=== PATIENT | female | born 1950 | race Caucasian/White ===

== ENCOUNTER 2017-03-20 20:08 | Inpatient (IN) | payer MEDICARE ==
[~2017-03-20] VITALS: Ht 165.1 cm; Wt 96.0 kg
[2017-03-20] MEDS ORDERED: ONDANSETRON 2MG/ML, 2ML IVPush ONE (20:30)
[2017-03-20] MEDS ORDERED: SODIUM CHLORIDE 0.9% 1,000ML IVBOLUS ONE ×3 (20:30→22:00)
[2017-03-20] MEDS ORDERED: SODIUM CHLORIDE FLUSH 10ML SYR IVF ONE ×2 (20:30→22:00)
[2017-03-20] MEDS ORDERED: ONDANSETRON 2MG/ML, 2ML ONE (21:00)
[2017-03-20] MEDS ORDERED: METF500T4 PO (21:10)
[2017-03-20 21:12] LABS: HEMATOCRIT 47.2 % (34.6-47.8); HEMOGLOBIN 15.3 g/dL (11.7-16.4); WHITE BLOOD COUNT 22.1 x10^3/uL (3.4-10)
[2017-03-20 21:25] LABS: ASPARTATE AMINO TRANSFERASE 9 U/L (15-37); BLOOD UREA NITROGEN 34 mg/dL (7-18)
[2017-03-20 21:29] LABS: IS PT STATUS REG ER OR PRE ER? YES
[2017-03-20 21:30] LABS: DIFF TOTAL CELLS COUNTED 100 CELL DIFF
[2017-03-20 21:32] LABS: VERIFY COUNTS? YES
[2017-03-20 21:33] LABS: LARGE PLATELETS 1+
[2017-03-20] MEDS ORDERED: SODIUM CHLORIDE 0.9% 1,000 ML IV ONE (21:35)
[2017-03-20] MEDS ORDERED: PHARMACOKINETIC CONSULTATION MC ONE (22:00)
[2017-03-20] MEDS ORDERED: VANCOMYCIN 1,400 MG in SODIUM CHLORIDE 0.9% 250 ML IV ONE (22:00)
[2017-03-20] MEDS ORDERED: PIPERACILLIN/TAZO/PMX 4.5GM 100 ML IV ONE (22:00)
[2017-03-20] MEDS ORDERED: PIPERACILLIN/TAZO/PMX 3.375GM 50 ML IVPB ONE (22:00)
[2017-03-20] MEDS ORDERED: VANCOMYCIN PER PHARMACY IV ONE (22:00)
[2017-03-20] MEDS ORDERED: CLINDAMYCIN PMX 900MG/50ML 50 ML IV ONE (22:00)
[2017-03-20] MEDS ORDERED: OMNIPAQUE 350 MG/ML, 100ML BOTTLE ONE (22:24)
[2017-03-20] MEDS ORDERED: REGULAR INSULIN 62.5 UNITS in SODIUM CHLORIDE 0.9% 249.375 ML IV PRN ×2 (23:05→23:48)
[2017-03-20] MEDS ORDERED: CLINDAMYCIN PMX 900MG/50ML 50 ML ONE (23:07)
[2017-03-20] MEDS ORDERED: LACTATED RINGERS 1,000 ML IV SCH (23:30)
[2017-03-20] MEDS ORDERED: D5%-0.45% NACL 1,000 ML IV SCH (23:48)
[2017-03-20] MEDS ORDERED: FENTANYL PF 100 MCG/2ML ONE (23:58)
[2017-03-20] MEDS ORDERED: INSULIN SINGLE DOSE, ER SQ-INSULIN ONE (23:59)
[2017-03-21] MEDS ORDERED: hydrALAzine 20 MG/ML, 1ML IVPush PRN
[2017-03-21] MEDS ORDERED: ENALAPRILAT 1.25 MG/ML, 2ML IVPush PRN
[2017-03-21] MEDS ORDERED: ACETAMINOPHEN 325 MG TABLET PO PRN
[2017-03-21] MEDS ORDERED: POLYETHYLENE GLYCOL 17 GM PACKET PO PRN
[2017-03-21] MEDS ORDERED: VANCOMYCIN PER PHARMACY MC PRN
[2017-03-21] MEDS ORDERED: ONDANSETRON 2MG/ML, 2ML IVPush PRN
[2017-03-21] MEDS ORDERED: BISACODYL 10 MG SUPP PR PRN
[2017-03-21] MEDS ORDERED: PHENYLEPHRINE 10 MG/ML ONE (00:30)
[2017-03-21] MEDS ORDERED: KETAMINE 10 MG/ML, 20ML ONE (01:07)
[2017-03-21] MEDS ORDERED: SUCCINYLCHOLINE 20 MG/ML, 10ML ONE (01:26)
[2017-03-21] MEDS ORDERED: ROCURONIUM 10MG/ML,5ML ONE ×2 (01:26)
[2017-03-21] MEDS ORDERED: CALCIUM CHLORIDE 10%, 10ML SYR ONE ×3 (01:26→02:51)
[2017-03-21] MEDS ORDERED: PROPOFOL 10 MG/ML, 20ML ONE ×2 (01:26)
[2017-03-21 01:42] LABS: ASPARTATE AMINO TRANSFERASE 12 U/L (15-37); BLOOD UREA NITROGEN 31 mg/dL (7-18)
[2017-03-21] MEDS ORDERED: SODIUM BICARBONATE 4.2%, 5ML ONE (01:49)
[2017-03-21] MEDS ORDERED: PROPOFOL 100 ML IV ONE (02:22)
[2017-03-21] MEDS ORDERED: PHARMACOKINETIC MONITORING MC PRN (02:30)
[2017-03-21] MEDS ORDERED: SODIUM BICARBONATE 1 MEQ/ML, 50ML VIAL ONE ×2 (02:51)
[2017-03-21] MEDS ORDERED: POTASSIUM CHLORIDE 40 MEQ in SODIUM CHLORIDE 0.9% 500 ML IV ONE (03:00)
[2017-03-21] MEDS: NS + 40MEQ KCL 1,000 ML IV SCH ×3 (03:14→19:42)
[2017-03-21] MEDS ORDERED: FENTANYL PF 2,500 MCG in SODIUM CHLORIDE 0.9% 200 ML IV PRN (03:14)
[2017-03-21] MEDS ORDERED: PROPOFOL 100 ML IV PRN (03:14)
[2017-03-21] MEDS: FENTANYL PF 2,500 MCG in SODIUM CHLORIDE 0.9% 200 ML IV PRN ×2 (03:17→22:36)
[2017-03-21 03:20] LABS: BLOOD UREA NITROGEN 31 mg/dL (7-18)
[2017-03-21] MEDS ORDERED: GLUCAGON 1 MG IM PRN (03:30)
[2017-03-21] MEDS: ALBUTEROL/IPRATROPIUM 2.5MG/0.5MG, 3 ML INLINE SCH ×7 (03:30→22:56)
[2017-03-21] MEDS ORDERED: LIDOCAINE-MPF 1%, 2ML ENDO PRN (03:30)
[2017-03-21] MEDS ORDERED: DEXTROSE 4 GM TAB.CHEW PO PRN (03:30)
[2017-03-21] MEDS: PIPERACILLIN/TAZO/PMX 3.375GM 50 ML IV SCH ×4 (03:31→21:18)
[2017-03-21] MEDS ORDERED: NOREPINEPHRINE 1 MG/ML, 4ML ONE (03:59)
[2017-03-21 05:22] LABS: HEMATOCRIT 33.6 % (34.6-47.8); HEMOGLOBIN 11.4 g/dL (11.7-16.4); WHITE BLOOD COUNT 25.4 x10^3/uL (3.4-10)
[2017-03-21 05:40] LABS: ASPARTATE AMINO TRANSFERASE 7 U/L (15-37); BLOOD UREA NITROGEN 30 mg/dL (7-18)
[2017-03-21 05:59] LABS: DIFF TOTAL CELLS COUNTED 100 CELL DIFF
[2017-03-21 06:02] LABS: VERIFY COUNTS? YES
[2017-03-21] MEDS: PROPOFOL 100 ML IV PRN ×6 (06:26→22:07)
[2017-03-21] MEDS: INSULIN ASPART 100 UNITS/ML, PEN SQ-INSULIN SCH ×4 (07:34→21:17)
[2017-03-21] MEDS: SENNA/DOCUSATE TABLET PO SCH (07:35)
[2017-03-21] MEDS: NOREPINEPHRINE 4 MG in SODIUM CHLORIDE 0.9% 246 ML IV PRN (09:07)
[2017-03-21] MEDS: VANCOMYCIN 1,400 MG in SODIUM CHLORIDE 0.9% 250 ML IV SCH ×2 (10:34→22:07)
[2017-03-21] MEDS: INSULIN DETEMIR 100 UNITS/ML, PEN SQ-INSULIN SCH ×2 (11:32→21:18)
[2017-03-21 11:40] LABS: BLOOD UREA NITROGEN 34 mg/dL (7-18)
[2017-03-21] MEDS ORDERED: MIDAZOLAM 1 MG/ML, 2ML ONE (16:36)
[2017-03-21] MEDS ORDERED: PROPOFOL 50 ML ONE (17:02)
[2017-03-21] MEDS ORDERED: FENTANYL PF 100 MCG/2ML ONE (17:19)
[2017-03-21 22:45] VITALS: BP 142/60
[2017-03-21] MEDS ORDERED: LACTATED RINGERS 1,000 ML IV SCH (23:30)
[2017-03-22] MEDS: NOREPINEPHRINE 4 MG in SODIUM CHLORIDE 0.9% 246 ML IV PRN ×3 (00:37→19:24)
[2017-03-22] MEDS: PROPOFOL 100 ML IV PRN ×7 (03:00→23:36)
[2017-03-22] MEDS: PIPERACILLIN/TAZO/PMX 3.375GM 50 ML IV SCH ×4 (03:30→20:04)
[2017-03-22] MEDS: NS + 40MEQ KCL 1,000 ML IV SCH ×3 (03:30→19:57)
[2017-03-22] MEDS: INSULIN ASPART 100 UNITS/ML, PEN SQ-INSULIN SCH ×4 (03:30→20:05)
[2017-03-22] MEDS: ALBUTEROL/IPRATROPIUM 2.5MG/0.5MG, 3 ML INLINE SCH ×6 (03:30→21:40)
[2017-03-22 04:00] VITALS: BP 115/46
[2017-03-22 04:40] LABS: ABG COLLECTION SITE RIGHT RADIAL; COLLATERAL CIRCULATION TESTING NORMAL
[2017-03-22 04:47] LABS: HEMATOCRIT 31.1 % (34.6-47.8); HEMOGLOBIN 10.6 g/dL (11.7-16.4); WHITE BLOOD COUNT 19.3 x10^3/uL (3.4-10)
[2017-03-22 04:52] LABS: BLOOD UREA NITROGEN 35 mg/dL (7-18)
[2017-03-22 05:45] LABS: DIFF TOTAL CELLS COUNTED 100 CELL DIFF
[2017-03-22 05:47] LABS: VERIFY COUNTS? YES
[2017-03-22] MEDS: INSULIN DETEMIR 100 UNITS/ML, PEN SQ-INSULIN SCH ×2 (08:50→20:05)
[2017-03-22] MEDS: SENNA/DOCUSATE TABLET PO SCH (08:51)
[2017-03-22] MEDS ORDERED: SODIUM CHLORIDE 0.9% 1,000ML IVBOLUS ONE ×3 (11:30→18:30)
[2017-03-22] MEDS ORDERED: MIDAZOLAM 1 MG/ML, 2ML ONE (12:48)
[2017-03-22] MEDS ORDERED: NOREPINEPHRINE 1 MG/ML, 4ML ONE (15:08)
[2017-03-22] MEDS ORDERED: BISACODYL 10 MG SUPP PR PRN (20:00)
[2017-03-22] MEDS ORDERED: POLYETHYLENE GLYCOL 17 GM PACKET PO PRN (20:00)
[2017-03-22] MEDS ORDERED: ONDANSETRON 2MG/ML, 2ML IVPush PRN (20:00)
[2017-03-22] MEDS ORDERED: ACETAMINOPHEN 325 MG TABLET PO PRN (20:00)
[2017-03-22] MEDS: VANCOMYCIN 1,400 MG in SODIUM CHLORIDE 0.9% 250 ML IV SCH (21:22)
[2017-03-22] MEDS: FENTANYL PF 2,500 MCG in SODIUM CHLORIDE 0.9% 200 ML IV PRN (21:22)
[2017-03-22] MEDS ORDERED: SODIUM CHLORIDE 0.9% 1,000 ML IV ONE (22:30)
[2017-03-23] MEDS: ALBUTEROL/IPRATROPIUM 2.5MG/0.5MG, 3 ML INLINE SCH ×2 (02:18→06:34)
[2017-03-23] MEDS: PIPERACILLIN/TAZO/PMX 3.375GM 50 ML IV SCH ×4 (02:38→21:18)
[2017-03-23] MEDS: NOREPINEPHRINE 4 MG in SODIUM CHLORIDE 0.9% 246 ML IV PRN (02:39)
[2017-03-23] MEDS: INSULIN ASPART 100 UNITS/ML, PEN SQ-INSULIN SCH ×4 (02:44→21:00)
[2017-03-23] MEDS: NS + 40MEQ KCL 1,000 ML IV SCH ×3 (02:57→21:59)
[2017-03-23] MEDS: PROPOFOL 100 ML IV PRN ×2 (02:57→08:21)
[2017-03-23 04:21] LABS: ABG COLLECTION SITE NOT DOCUMENTED
[2017-03-23 04:42] LABS: HEMATOCRIT 28.1 % (34.6-47.8); HEMOGLOBIN 9.5 g/dL (11.7-16.4); WHITE BLOOD COUNT 14.9 x10^3/uL (3.4-10)
[2017-03-23 04:45] VITALS: BP 122/59
[2017-03-23 04:45] LABS: BLOOD UREA NITROGEN 31 mg/dL (7-18)
[2017-03-23] MEDS: SENNA/DOCUSATE TABLET PO SCH (08:37)
[2017-03-23] MEDS: INSULIN DETEMIR 100 UNITS/ML, PEN SQ-INSULIN SCH ×2 (08:40→21:19)
[2017-03-23] MEDS ORDERED: ALBUMIN HUMAN 25% 100 ML IV ONE (10:00)
[2017-03-23] MEDS ORDERED: DAKIN'S SOLUTION 1/4 STRENGTH 1,000 ML IRRIG SOLN EXT SCH ×2 (11:00→21:00)
[2017-03-23] MEDS ORDERED: FUROSEMIDE 20 MG/2 ML IV ONE (11:15)
[2017-03-23] MEDS: VANCOMYCIN 1,400 MG in SODIUM CHLORIDE 0.9% 250 ML IV SCH (22:51)
[2017-03-24] MEDS: PIPERACILLIN/TAZO/PMX 3.375GM 50 ML IV SCH ×4 (03:31→22:22)
[2017-03-24] MEDS: INSULIN ASPART 100 UNITS/ML, PEN SQ-INSULIN SCH ×4 (03:31→20:15)
[2017-03-24 03:47] LABS: HEMATOCRIT 29.9 % (34.6-47.8); WHITE BLOOD COUNT 17.6 x10^3/uL (3.4-10)
[2017-03-24 03:59] LABS: BLOOD UREA NITROGEN 31 mg/dL (7-18)
[2017-03-24 04:00] VITALS: BP 163/80
[2017-03-24 04:37] LABS: ABG COLLECTION SITE RIGHT BRACHIAL
[2017-03-24] MEDS: FENTANYL PF 2,500 MCG in SODIUM CHLORIDE 0.9% 200 ML IV PRN (05:26)
[2017-03-24] MEDS ORDERED: SODIUM CHLORIDE 0.9% 1,000 ML IV SCH ×2 (09:00→16:30)
[2017-03-24] MEDS: SENNA/DOCUSATE TABLET PO SCH (09:00)
[2017-03-24] MEDS ORDERED: MAGNESIUM SULFATE PMX 2GM/50ML 50 ML IV ONE (09:00)
[2017-03-24] MEDS: INSULIN DETEMIR 100 UNITS/ML, PEN SQ-INSULIN SCH ×2 (09:00→20:15)
[2017-03-24 15:22] LABS: ABG COLLECTION SITE RIGHT RADIAL
[2017-03-24 15:25] LABS: COLLATERAL CIRCULATION TESTING NORMAL
[2017-03-24] MEDS ORDERED: TPN PER PHARMACY MC SCH (15:30)
[2017-03-24] MEDS ORDERED: FAT EMULSIONS IV SCH (17:00)
[2017-03-24] MEDS ORDERED: DEXTROSE 10% 500 ML IV PRN (17:00)
[2017-03-24] MEDS ORDERED: DEXTROSE 50%, 50ML SYRINGE IVPush PRN (17:00)
[2017-03-24] MEDS ORDERED: DEXTROSE 70% IV SCH (17:00)
[2017-03-24] MEDS ORDERED: [UNRECOGNIZED DRUG - OTHER] IV SCH (17:00)
[2017-03-24] MEDS ORDERED: AMINO ACID 10% IV SCH (17:00)
[2017-03-24] MEDS ORDERED: FILTER, DISP 1.2 MICRON FOR TPN/PVN IV PRN (17:00)
[2017-03-24] MEDS: DAKIN'S SOLUTION 1/4 STRENGTH 1,000 ML IRRIG SOLN EXT SCH (20:11)
[2017-03-24] MEDS: CLINDAMYCIN PMX 900MG/50ML 50 ML IV SCH (20:21)
[2017-03-24] MEDS: VANCOMYCIN 1,400 MG in SODIUM CHLORIDE 0.9% 250 ML IV SCH (23:30)
[2017-03-25] MEDS: CLINDAMYCIN PMX 900MG/50ML 50 ML IV SCH (02:52)
[2017-03-25] MEDS: INSULIN ASPART 100 UNITS/ML, PEN SQ-INSULIN SCH ×4 (02:57→20:15)
[2017-03-25] MEDS ORDERED: SODIUM CHLORIDE 0.9%, 500ML IVBOLUS ONE (03:00)
[2017-03-25] MEDS: PIPERACILLIN/TAZO/PMX 3.375GM 50 ML IV SCH ×2 (03:55→10:01)
[2017-03-25 03:57] VITALS: BP 142/72
[2017-03-25 04:21] LABS: HEMOGLOBIN 10.2 g/dL (11.7-16.4); WHITE BLOOD COUNT 19.5 x10^3/uL (3.4-10)
[2017-03-25 04:34] LABS: BLOOD UREA NITROGEN 42 mg/dL (7-18)
[2017-03-25 05:00] LABS: ASPARTATE AMINO TRANSFERASE 16 U/L (15-37)
[2017-03-25 05:13] LABS: ABG COLLECTION SITE RIGHT RADIAL; COLLATERAL CIRCULATION TESTING NORMAL
[2017-03-25 05:28] LABS: DIFF TOTAL CELLS COUNTED 100 CELL DIFF
[2017-03-25 05:32] LABS: VERIFY COUNTS? YES
[2017-03-25] MEDS: FENTANYL PF 2,500 MCG in SODIUM CHLORIDE 0.9% 200 ML IV PRN ×2 (05:44→10:07)
[2017-03-25] MEDS: SENNA/DOCUSATE TABLET PO SCH (09:00)
[2017-03-25] MEDS ORDERED: SODIUM BICARB 8.4%, 50ML SYRINGE IVPush ONE (09:30)
[2017-03-25] MEDS: DAKIN'S SOLUTION 1/4 STRENGTH 1,000 ML IRRIG SOLN EXT SCH ×2 (10:08→23:34)
[2017-03-25] MEDS: INSULIN DETEMIR 100 UNITS/ML, PEN SQ-INSULIN SCH ×3 (10:11→20:16)
[2017-03-25] MEDS: AMPICILLIN/SULBACTAM 1,500 MG in SODIUM CHLORIDE 0.9% 50 ML IV SCH ×2 (13:08→18:41)
[2017-03-25] MEDS ORDERED: FAT EMULSIONS IV SCH (17:00)
[2017-03-25] MEDS ORDERED: AMINO ACID 10% IV SCH (17:00)
[2017-03-25] MEDS ORDERED: [UNRECOGNIZED DRUG - OTHER] IV SCH (17:00)
[2017-03-25] MEDS ORDERED: DEXTROSE 70% IV SCH (17:00)
[2017-03-25] MEDS: FILTER, DISP 1.2 MICRON FOR TPN/PVN IV PRN (20:09)
[2017-03-26] MEDS: AMPICILLIN/SULBACTAM 1,500 MG in SODIUM CHLORIDE 0.9% 50 ML IV SCH ×3 (02:33→18:59)
[2017-03-26] MEDS: INSULIN ASPART 100 UNITS/ML, PEN SQ-INSULIN SCH ×4 (03:44→20:34)
[2017-03-26 03:52] VITALS: BP 170/76
[2017-03-26 05:33] LABS: HEMATOCRIT 29.3 % (34.6-47.8); HEMOGLOBIN 9.9 g/dL (11.7-16.4); WHITE BLOOD COUNT 15.2 x10^3/uL (3.4-10)
[2017-03-26 05:38] LABS: ABG COLLECTION SITE RIGHT BRACHIAL
[2017-03-26] MEDS: hydrALAzine 20 MG/ML, 1ML IVPush PRN ×3 (05:45→20:59)
[2017-03-26 05:50] LABS: BLOOD UREA NITROGEN 37 mg/dL (7-18)
[2017-03-26 05:53] LABS: ASPARTATE AMINO TRANSFERASE 8 U/L (15-37)
[2017-03-26 05:59] LABS: DIFF TOTAL CELLS COUNTED 100 CELL DIFF
[2017-03-26 06:06] LABS: VERIFY COUNTS? YES
[2017-03-26] MEDS: INSULIN DETEMIR 100 UNITS/ML, PEN SQ-INSULIN SCH ×2 (06:37→20:33)
[2017-03-26] MEDS: SENNA/DOCUSATE TABLET PO SCH (09:00)
[2017-03-26] MEDS: DAKIN'S SOLUTION 1/4 STRENGTH 1,000 ML IRRIG SOLN EXT SCH ×2 (10:30→20:28)
[2017-03-26] MEDS ORDERED: [UNRECOGNIZED DRUG - OTHER] IV SCH (17:00)
[2017-03-26] MEDS ORDERED: DEXTROSE 70% IV SCH ×2 (17:00)
[2017-03-26] MEDS ORDERED: AMINO ACID 10% IV SCH ×2 (17:00)
[2017-03-26] MEDS ORDERED: [UNRECOGNIZED DRUG - OTHER] IV SCH (17:00)
[2017-03-26] MEDS ORDERED: FAT EMULSIONS IV SCH ×2 (17:00)
[2017-03-26] MEDS ORDERED: LORazepam 2 MG/ML, 1ML IVPush ONE (20:00)
[2017-03-26] MEDS ORDERED: LORazepam 2 MG/ML, 1ML IVPush PRN (20:00)
[2017-03-26] MEDS: DIPHENHYDRAMINE 50 MG/ML, 1ML IVPush PRN (20:27)
[2017-03-27] MEDS: FENTANYL PF 2,500 MCG in SODIUM CHLORIDE 0.9% 200 ML IV PRN (01:49)
[2017-03-27] MEDS: AMPICILLIN/SULBACTAM 1,500 MG in SODIUM CHLORIDE 0.9% 50 ML IV SCH ×3 (02:39→19:36)
[2017-03-27] MEDS: INSULIN ASPART 100 UNITS/ML, PEN SQ-INSULIN SCH ×4 (02:49→21:57)
[2017-03-27 03:45] VITALS: BP 152/73
[2017-03-27 04:55] LABS: ABG COLLECTION SITE RIGHT RADIAL; COLLATERAL CIRCULATION TESTING NORMAL
[2017-03-27 05:32] LABS: HEMATOCRIT 27.6 % (34.6-47.8); HEMOGLOBIN 9.4 g/dL (11.7-16.4); WHITE BLOOD COUNT 14.1 x10^3/uL (3.4-10)
[2017-03-27 05:44] LABS: BLOOD UREA NITROGEN 26 mg/dL (7-18)
[2017-03-27] MEDS: INSULIN DETEMIR 100 UNITS/ML, PEN SQ-INSULIN SCH ×2 (05:53→19:37)
[2017-03-27] MEDS: SENNA/DOCUSATE TABLET PO SCH (07:43)
[2017-03-27] MEDS: DAKIN'S SOLUTION 1/4 STRENGTH 1,000 ML IRRIG SOLN EXT SCH ×2 (09:51→21:51)
[2017-03-27] MEDS: hydrALAzine 20 MG/ML, 1ML IVPush PRN ×2 (09:59→16:49)
[2017-03-27] MEDS: DIPHENHYDRAMINE 50 MG/ML, 1ML IVPush PRN ×3 (09:59→22:06)
[2017-03-27] MEDS: ZIPRASIDONE 20 MG INJ IM PRN ×2 (09:59→15:29)
[2017-03-27] MEDS ORDERED: [UNRECOGNIZED DRUG - OTHER] IV SCH (17:00)
[2017-03-27] MEDS ORDERED: AMINO ACID 10% IV SCH (17:00)
[2017-03-27] MEDS ORDERED: DEXTROSE 70% IV SCH (17:00)
[2017-03-27] MEDS ORDERED: FAT EMULSIONS IV SCH (17:00)
[2017-03-27] MEDS: morphine SULFATE 10 MG/ML, 1ML IVPush PRN (22:06)
[2017-03-28] MEDS: FENTANYL PF 2,500 MCG in SODIUM CHLORIDE 0.9% 200 ML IV PRN (00:36)
[2017-03-28] MEDS: morphine SULFATE 10 MG/ML, 1ML IVPush PRN ×2 (01:16→04:21)
[2017-03-28] MEDS: AMPICILLIN/SULBACTAM 1,500 MG in SODIUM CHLORIDE 0.9% 50 ML IV SCH ×3 (03:04→20:12)
[2017-03-28] MEDS: hydrALAzine 20 MG/ML, 1ML IVPush PRN (03:17)
[2017-03-28] MEDS: INSULIN ASPART 100 UNITS/ML, PEN SQ-INSULIN SCH ×5 (03:28→20:23)
[2017-03-28 04:25] LABS: ABG COLLECTION SITE RIGHT RADIAL; COLLATERAL CIRCULATION TESTING NORMAL
[2017-03-28 04:27] LABS: FIO2 ROOM AIR %
[2017-03-28 04:29] LABS: HEMATOCRIT 30.6 % (34.6-47.8); HEMOGLOBIN 10.2 g/dL (11.7-16.4); WHITE BLOOD COUNT 14.6 x10^3/uL (3.4-10)
[2017-03-28 04:36] LABS: BLOOD UREA NITROGEN 18 mg/dL (7-18)
[2017-03-28] MEDS ORDERED: LORazepam 2 MG/ML, 1ML ONE (05:13)
[2017-03-28 05:20] VITALS: BP 179/73
[2017-03-28] MEDS ORDERED: LORazepam 2 MG/ML, 1ML IVPush PRN (05:30)
[2017-03-28] MEDS: INSULIN DETEMIR 100 UNITS/ML, PEN SQ-INSULIN SCH ×2 (07:00→20:23)
[2017-03-28] MEDS ORDERED: MAGNESIUM SULFATE PMX 4GM/100M 100 ML IV ONE (07:30)
[2017-03-28] MEDS: DAKIN'S SOLUTION 1/4 STRENGTH 1,000 ML IRRIG SOLN EXT SCH ×2 (07:58→22:10)
[2017-03-28] MEDS: SENNA/DOCUSATE TABLET PO SCH (07:58)
[2017-03-28] MEDS: ZIPRASIDONE 20 MG INJ IM PRN (11:12)
[2017-03-28] MEDS: DIPHENHYDRAMINE 50 MG/ML, 1ML IVPush PRN (11:15)
[2017-03-28] MEDS ORDERED: EPINEPHRINE 1 MG/ML, 1ML ONE (14:00)
[2017-03-28] MEDS ORDERED: BUPIVACAINE/PF 0.5% ONE (14:00)
[2017-03-28] MEDS ORDERED: FENTANYL PF 250 MCG/5ML ONE (14:11)
[2017-03-28] MEDS ORDERED: MIDAZOLAM 1 MG/ML, 2ML ONE (14:11)
[2017-03-28] MEDS ORDERED: PROPOFOL 10 MG/ML, 20ML ONE (14:14)
[2017-03-28] MEDS ORDERED: SUCCINYLCHOLINE 20 MG/ML, 10ML ONE (14:14)
[2017-03-28] MEDS ORDERED: ONDANSETRON 2MG/ML, 2ML ONE (14:14)
[2017-03-28] MEDS ORDERED: CEFAZOLIN 1,000 MG ONE (14:14)
[2017-03-28] MEDS ORDERED: ROCURONIUM 10MG/ML,5ML ONE (14:14)
[2017-03-28] MEDS ORDERED: GLYCOPYRROLATE 0.2MG/1ML, 5ML ONE (14:14)
[2017-03-28] MEDS ORDERED: DEXAMETHASONE 4 MG/ML, 1ML ONE (14:14)
[2017-03-28] MEDS ORDERED: NEOSTIGMINE 1 MG/ML, 10ML ONE (14:14)
[2017-03-28] MEDS ORDERED: MORPHINE SULFATE 4 MG/ML, 1ML ONE (15:15)
[2017-03-28] MEDS ORDERED: VASOPRESSIN 20 UNIT/ML, 1ML ONE (15:24)
[2017-03-28] MEDS ORDERED: PHENYLEPHRINE 10 MG/ML ONE (15:24)
[2017-03-28] MEDS ORDERED: EPHEDRINE 50 MG/ML, 1ML ONE (16:05)
[2017-03-28] MEDS ORDERED: DIAZEPAM 5 MG/ML, 2ML IVPush PRN (17:00)
[2017-03-28] MEDS ORDERED: AMINO ACID 10% IV SCH (17:00)
[2017-03-28] MEDS ORDERED: MEPERIDINE/PF 25MG/0.5ML IVPush PRN (17:00)
[2017-03-28] MEDS ORDERED: HYDROmorphone 1 MG/ML, 1ML IV PRN (17:00)
[2017-03-28] MEDS ORDERED: MIDAZOLAM 1 MG/ML, 2ML IV PRN (17:00)
[2017-03-28] MEDS ORDERED: PROMETHAZINE 25 MG/ML, 1ML IV PRN (17:00)
[2017-03-28] MEDS ORDERED: ALBUTEROL SULFATE 2.5 MG/3 ML NPPB PRN (17:00)
[2017-03-28] MEDS ORDERED: [UNRECOGNIZED DRUG - OTHER] IV SCH (17:00)
[2017-03-28] MEDS ORDERED: METOPROLOL 1 MG/ML, 5ML IV PRN (17:00)
[2017-03-28] MEDS ORDERED: ACETAMINOPHEN 325 MG TABLET PO PRN (17:00)
[2017-03-28] MEDS ORDERED: HYDROcodone/APAP 7.5-325MG/15ML UDC PO PRN (17:00)
[2017-03-28] MEDS ORDERED: OXYcodone 5 MG/5 ML ORAL.SOL UDC PO PRN (17:00)
[2017-03-28] MEDS ORDERED: FENTANYL PF 100 MCG/2ML IV PRN (17:00)
[2017-03-28] MEDS ORDERED: FAT EMULSIONS IV SCH (17:00)
[2017-03-28] MEDS ORDERED: DEXTROSE 70% IV SCH (17:00)
[2017-03-28] MEDS ORDERED: hydrALAzine 20 MG/ML, 1ML IV PRN (17:00)
[2017-03-28] MEDS ORDERED: LABETALOL 5MG/ML, 20ML IV PRN (17:00)
[2017-03-28] MEDS ORDERED: ONDANSETRON 2MG/ML, 2ML IVPush PRN (17:00)
[2017-03-28] MEDS ORDERED: EPHEDRINE 50 MG/ML, 1ML IVPush PRN (17:00)
[2017-03-28] MEDS ORDERED: INSULIN REGULAR 100 UNITS/ML, 3ML VIAL SQ-INSULIN ONE (19:00)
[2017-03-29] MEDS: FENTANYL PF 2,500 MCG in SODIUM CHLORIDE 0.9% 200 ML IV PRN ×2 (00:40→20:15)
[2017-03-29] MEDS: INSULIN ASPART 100 UNITS/ML, PEN SQ-INSULIN SCH ×4 (02:04→19:40)
[2017-03-29] MEDS: AMPICILLIN/SULBACTAM 1,500 MG in SODIUM CHLORIDE 0.9% 50 ML IV SCH (03:23)
[2017-03-29 04:00] VITALS: BP 124/75
[2017-03-29 05:28] LABS: HEMATOCRIT 28.7 % (34.6-47.8); HEMOGLOBIN 9.6 g/dL (11.7-16.4)
[2017-03-29 05:31] LABS: BLOOD UREA NITROGEN 27 mg/dL (7-18)
[2017-03-29] MEDS: INSULIN DETEMIR 100 UNITS/ML, PEN SQ-INSULIN SCH ×2 (07:39→19:40)
[2017-03-29] MEDS: SENNA/DOCUSATE TABLET PO SCH (09:00)
[2017-03-29] MEDS: PIPERACILLIN/TAZO/PMX 4.5GM 100 ML IV SCH ×2 (10:38→18:00)
[2017-03-29] MEDS: DAKIN'S SOLUTION 1/4 STRENGTH 1,000 ML IRRIG SOLN EXT SCH ×2 (12:46→21:43)
[2017-03-29] MEDS ORDERED: [UNRECOGNIZED DRUG - OTHER] IV SCH (17:00)
[2017-03-29] MEDS ORDERED: FAT EMULSIONS IV SCH (17:00)
[2017-03-29] MEDS ORDERED: AMINO ACID 10% IV SCH (17:00)
[2017-03-29] MEDS ORDERED: DEXTROSE 70% IV SCH (17:00)
[2017-03-29] MEDS: FILTER, DISP 1.2 MICRON FOR TPN/PVN IV PRN (18:05)
[2017-03-29] MEDS ORDERED: GLUCAGON 1 MG IM PRN (19:30)
[2017-03-29] MEDS ORDERED: ACETAMINOPHEN 325 MG TABLET PO PRN (19:30)
[2017-03-29] MEDS ORDERED: DEXTROSE 50%, 50ML SYRINGE IVPush PRN (19:30)
[2017-03-29] MEDS ORDERED: POLYETHYLENE GLYCOL 17 GM PACKET PO PRN (19:30)
[2017-03-29] MEDS ORDERED: BISACODYL 10 MG SUPP PR PRN (19:30)
[2017-03-29] MEDS ORDERED: TPN PER PHARMACY MC SCH (19:30)
[2017-03-29] MEDS ORDERED: ONDANSETRON 2MG/ML, 2ML IVPush PRN (19:30)
[2017-03-29] MEDS ORDERED: DEXTROSE 10% 500 ML IV PRN (19:30)
[2017-03-30] MEDS: PIPERACILLIN/TAZO/PMX 4.5GM 100 ML IV SCH ×3 (01:48→17:36)
[2017-03-30] MEDS: INSULIN ASPART 100 UNITS/ML, PEN SQ-INSULIN SCH ×4 (02:02→22:00)
[2017-03-30 04:00] VITALS: BP 144/64
[2017-03-30 06:00] LABS: HEMATOCRIT 26.8 % (34.6-47.8); HEMOGLOBIN 9.1 g/dL (11.7-16.4); WHITE BLOOD COUNT 17.1 x10^3/uL (3.4-10)
[2017-03-30 06:05] VITALS: BP 143/62
[2017-03-30 06:07] LABS: BLOOD UREA NITROGEN 24 mg/dL (7-18)
[2017-03-30] MEDS: INSULIN DETEMIR 100 UNITS/ML, PEN SQ-INSULIN SCH (08:49)
[2017-03-30] MEDS: HEPARIN 5,000 UNITS/ML, 1ML SQ SCH ×2 (09:06→17:37)
[2017-03-30] MEDS: DAKIN'S SOLUTION 1/4 STRENGTH 1,000 ML IRRIG SOLN EXT SCH (09:06)
[2017-03-30] MEDS: SENNA/DOCUSATE TABLET PO SCH (09:06)
[2017-03-30] MEDS ORDERED: AMINO ACID 10% IV SCH (17:00)
[2017-03-30] MEDS ORDERED: FAT EMULSIONS IV SCH (17:00)
[2017-03-30] MEDS ORDERED: [UNRECOGNIZED DRUG - OTHER] IV SCH (17:00)
[2017-03-30] MEDS ORDERED: DEXTROSE 70% IV SCH (17:00)
[2017-03-31] MEDS: PIPERACILLIN/TAZO/PMX 4.5GM 100 ML IV SCH ×3 (01:53→18:29)
[2017-03-31] MEDS: HEPARIN 5,000 UNITS/ML, 1ML SQ SCH ×3 (01:54→18:29)
[2017-03-31 04:00] VITALS: BP 135/58
[2017-03-31 04:32] LABS: HEMATOCRIT 26.5 % (34.6-47.8); HEMOGLOBIN 8.9 g/dL (11.7-16.4); WHITE BLOOD COUNT 15.1 x10^3/uL (3.4-10)
[2017-03-31 04:36] LABS: BLOOD UREA NITROGEN 23 mg/dL (7-18)
[2017-03-31] MEDS: FENTANYL PF 2,500 MCG in SODIUM CHLORIDE 0.9% 200 ML IV PRN (04:48)
[2017-03-31] MEDS: INSULIN ASPART 100 UNITS/ML, PEN SQ-INSULIN SCH ×3 (06:00→23:07)
[2017-03-31] MEDS ORDERED: D5%-0.45NACL+KCL 20MEQ 1,000 ML IV SCH (07:30)
[2017-03-31] MEDS ORDERED: OXYcodone 5 MG/5 ML ORAL.SOL UDC NG PRN (08:30)
[2017-03-31] MEDS: SENNA/DOCUSATE TABLET PO SCH (09:00)
[2017-03-31 15:00] VITALS: BP 157/95
[2017-03-31] MEDS: OXYcodone IR 5MG TABLET PO PRN ×2 (16:35→23:19)
[2017-03-31] MEDS ORDERED: DEXTROSE 70% IV SCH (17:00)
[2017-03-31] MEDS ORDERED: FAT EMULSIONS IV SCH (17:00)
[2017-03-31] MEDS ORDERED: AMINO ACID 10% IV SCH (17:00)
[2017-03-31] MEDS ORDERED: [UNRECOGNIZED DRUG - OTHER] IV SCH (17:00)
[2017-03-31] MEDS: FILTER, DISP 1.2 MICRON FOR TPN/PVN IV PRN (17:15)
[2017-04-01 01:45] VITALS: BP 138/62
[2017-04-01] MEDS: HEPARIN 5,000 UNITS/ML, 1ML SQ SCH (02:10)
[2017-04-01] MEDS: PIPERACILLIN/TAZO/PMX 4.5GM 100 ML IV SCH ×3 (02:10→21:09)
[2017-04-01 05:05] LABS: BLOOD UREA NITROGEN 21 mg/dL (7-18)
[2017-04-01 05:12] LABS: HEMATOCRIT 26.3 % (34.6-47.8); HEMOGLOBIN 8.8 g/dL (11.7-16.4); WHITE BLOOD COUNT 10.1 x10^3/uL (3.4-10)
[2017-04-01] MEDS: INSULIN ASPART 100 UNITS/ML, PEN SQ-INSULIN SCH ×3 (06:46→21:13)
[2017-04-01] MEDS: SENNA/DOCUSATE TABLET PO SCH (09:00)
[2017-04-01 09:08] VITALS: BP 135/71
[2017-04-01 16:18] VITALS: BP 146/74
[2017-04-01] MEDS ORDERED: FILTER, DISP 1.2 MICRON FOR TPN/PVN IV PRN (17:00)
[2017-04-01] MEDS ORDERED: DEXTROSE 70% IV SCH (17:00)
[2017-04-01] MEDS ORDERED: AMINO ACID 10% IV SCH (17:00)
[2017-04-01] MEDS ORDERED: FAT EMULSIONS IV SCH (17:00)
[2017-04-01] MEDS ORDERED: [UNRECOGNIZED DRUG - OTHER] IV SCH (17:00)
[2017-04-01] MEDS ORDERED: FENTANYL PF 100 MCG/2ML ONE (17:23)
[2017-04-01] MEDS ORDERED: PROMETHAZINE 25 MG/ML, 1ML IV PRN (17:30)
[2017-04-01] MEDS ORDERED: hydrALAzine 20 MG/ML, 1ML IV PRN (17:30)
[2017-04-01] MEDS ORDERED: HYDROmorphone 1 MG/ML, 1ML IV PRN (17:30)
[2017-04-01] MEDS ORDERED: FENTANYL PF 100 MCG/2ML IV PRN (17:30)
[2017-04-01] MEDS ORDERED: OXYcodone 5 MG/5 ML ORAL.SOL UDC PO PRN (17:30)
[2017-04-01] MEDS ORDERED: LABETALOL 5MG/ML, 20ML IV PRN (17:30)
[2017-04-01] MEDS ORDERED: ONDANSETRON 2MG/ML, 2ML IVPush PRN (17:30)
[2017-04-01] MEDS ORDERED: ACETAMINOPHEN 325 MG TABLET PO PRN (17:30)
[2017-04-01] MEDS ORDERED: PHENYLEPHRINE 10 MG/ML ONE (17:32)
[2017-04-01] MEDS ORDERED: PROPOFOL 10 MG/ML, 20ML ONE (17:55)
[2017-04-01] MEDS ORDERED: SUCCINYLCHOLINE 20 MG/ML, 10ML ONE (17:55)
[2017-04-01] MEDS ORDERED: ROCURONIUM 10MG/ML,5ML ONE (17:55)
[2017-04-01] MEDS ORDERED: EPHEDRINE 50 MG/ML, 1ML ONE (17:55)
[2017-04-01] MEDS ORDERED: MORPHINE SULFATE 4 MG/ML, 1ML ONE ×3 (18:00→18:18)
[2017-04-01] MEDS ORDERED: HYDROmorphone 1 MG/ML, 1ML ONE (18:57)
[2017-04-01] MEDS ORDERED: OXYcodone 5 MG/5 ML ORAL.SOL UDC ONE (18:58)
[2017-04-01 20:15] VITALS: BP 108/63
[2017-04-02 00:21] VITALS: BP 135/70
[2017-04-02 04:39] LABS: HEMATOCRIT 25.1 % (34.6-47.8); HEMOGLOBIN 8.3 g/dL (11.7-16.4); WHITE BLOOD COUNT 10.6 x10^3/uL (3.4-10)
[2017-04-02 04:53] VITALS: BP 146/76
[2017-04-02 04:53] LABS: BLOOD UREA NITROGEN 17 mg/dL (7-18)
[2017-04-02] MEDS: PIPERACILLIN/TAZO/PMX 4.5GM 100 ML IV SCH ×2 (05:28→13:34)
[2017-04-02] MEDS: INSULIN ASPART 100 UNITS/ML, PEN SQ-INSULIN SCH (05:33)
[2017-04-02] MEDS ORDERED: INSULIN DETEMIR 100 UNITS/ML, PEN SQ-INSULIN SCH (07:30)
[2017-04-02] MEDS ORDERED: MAGNESIUM SULFATE PMX 4GM/100M 100 ML IV ONE (07:30)
[2017-04-02] MEDS ORDERED: SENNA/DOCUSATE TABLET PO SCH (09:00)
[2017-04-02 09:12] VITALS: BP 114/81
[2017-04-02] MEDS ORDERED: OXYC5TAB3 PO (10:02)
[2017-04-02] MEDS ORDERED: MORP10VI10 IVPush (10:02)
[2017-04-02] MEDS ORDERED: INSU100I18 SQ-INSULIN (10:02)
[2017-04-02] MEDS ORDERED: ACET325T14 PO (10:02)
[2017-04-02] MEDS ORDERED: INSU100I28 SQ-INSULIN (10:02)
[2017-04-02] MEDS: OXYcodone IR 5MG TABLET PO PRN ×2 (10:16→15:17)
[2017-04-02 13:21] VITALS: BP 123/65
== END 2017-04-02 15:35 | DRG 853 ==
LOC: ED 23:13 → EDIP 23:14 → CCU 03-21 01:41 → 3NW 03-31 14:04 → 4NOR 03-31 16:12
PROVIDERS: ADMIT Internal Medicine; ATTEND Internal Medicine
PROC: 0JB90ZZ Excision of Buttock Subcutaneous Tissue and Fascia, Open Approach (ICD-10-PCS; 2017-03-21)
PROC: 0BH17EZ Insertion of Endotracheal Airway into Trachea, Via Natural or Artificial Opening (ICD-10-PCS; 2017-03-21)
PROC: 5A1945Z Respiratory Ventilation, 24-96 Consecutive Hours (ICD-10-PCS; 2017-03-21)
PROC: 0KBM0ZZ Excision of Perineum Muscle, Open Approach (ICD-10-PCS; 2017-03-21)
PROC: 0JB70ZZ Excision of Back Subcutaneous Tissue and Fascia, Open Approach (ICD-10-PCS; 2017-03-21)
PROC: 0JB90ZZ Excision of Buttock Subcutaneous Tissue and Fascia, Open Approach (ICD-10-PCS; 2017-03-21)
PROC: 0KBP0ZZ Excision of Left Hip Muscle, Open Approach (ICD-10-PCS; principal; 2017-03-21 16:00)
PROC: 0JJT0ZZ Inspection of Trunk Subcutaneous Tissue and Fascia, Open Approach (ICD-10-PCS; 2017-03-22)
PROC: 0D1L0Z4 Bypass Transverse Colon to Cutaneous, Open Approach (ICD-10-PCS; 2017-03-28)
PROC: 0DH63UZ Insertion of Feeding Device into Stomach, Percutaneous Approach (ICD-10-PCS; 2017-03-28)
PROC: 0WJP4ZZ Inspection of Gastrointestinal Tract, Percutaneous Endoscopic Approach (ICD-10-PCS; 2017-03-28)
PROC: 02HV33Z Insertion of Infusion Device into Superior Vena Cava, Percutaneous Approach (ICD-10-PCS; 2017-03-31)
PROC: B548ZZA Ultrasonography of Superior Vena Cava, Guidance (ICD-10-PCS; 2017-03-31)
PROC: 0JBB0ZZ Excision of Perineum Subcutaneous Tissue and Fascia, Open Approach (ICD-10-PCS; 2017-04-01)
DX: A41.9 Sepsis, unspecified organism (principal); M72.6 Necrotizing fasciitis; J96.00 Acute respiratory failure, unspecified whether with hypoxia or hypercapnia; E43 Unspecified severe protein-calorie malnutrition; K63.1 Perforation of intestine (nontraumatic); G93.41 Metabolic encephalopathy; N17.0 Acute kidney failure with tubular necrosis; E11.10 Type 2 diabetes mellitus with ketoacidosis without coma; I96 Gangrene, not elsewhere classified; N17.9 Acute kidney failure, unspecified; E87.1 Hypo-osmolality and hyponatremia; J81.1 Chronic pulmonary edema; J98.11 Atelectasis; L03.317 Cellulitis of buttock; Z99.11 Dependence on respirator [ventilator] status; L02.31 Cutaneous abscess of buttock; W19.XXXA Unspecified fall, initial encounter; E86.0 Dehydration; D63.8 Anemia in other chronic diseases classified elsewhere; E66.9 Obesity, unspecified; Z68.35 Body mass index [BMI] 35.0-35.9, adult; E87.6 Hypokalemia; F12.90 Cannabis use, unspecified, uncomplicated; I10 Essential (primary) hypertension; K59.00 Constipation, unspecified; L40.9 Psoriasis, unspecified; R65.20 Severe sepsis without septic shock; Z53.31 Laparoscopic surgical procedure converted to open procedure; Z87.891 Personal history of nicotine dependence
CPT/HCPCS: 36415; 36569; 36600; 70450; 71010; 74000; 74020; 74177; 76770; 76937; 77001; 80047; 80048; 80053; 80202; 81001; 82140; 82436; 82533; 82570; 82607; 82803; 82962; 83036; 83605; 83735; 84100; 84133; 84134; 84145; 84300; 84439; 84443; 84478; 84484; 85025; 85610; 85730; 87040; 87070; 87075; 87076; 87077; 87081; 87147; 87186; 87205; 93005; 94002; 94003; 94640; 96361; 96365; 96375; B4087; C1729; J0171; J0610; J0690; J1100; J1170; J1644; J1815; J2250; J2270; J2405; J2543; J2704; J2710; J3010; J3370; J3475; J3480; J3486; J3490; J7620; P9047; Q9967; C1751; C1765; J0295; J0330; J0360; J1200; J1940; J2060; J2370; J3420; J7030; J7040; J7050; S0028

== ENCOUNTER → 2018-02-04 | Outpatient (CLI) | payer MEDICARE ==
[~2018-02-04] MED LIST: ACET325T14 PO; ASCO-96 PO; INSU100I18 SQ-INSULIN; INSU100I28 SQ-INSULIN; INSU300I INJ; METF500T5 PO; MORP10VI10 IVPush; OXYC5TAB3 PO; ROSU20TA PO
[2018-02-04 14:19] LABS: BASOPHILS # (AUTO) 0.07 x10^3/uL (0-0.1); BASOPHILS % (AUTO) 1 % (0-1); EOSINOPHILS # (AUTO) 0.45 x10^3/uL (0-0.4); EOSINOPHILS % (AUTO) 4 % (1-7); LYMPHOCYTES # (AUTO) 2.49 x10^3/uL (1-3.4); LYMPHOCYTES % (AUTO) 23 % (22-44); MD NO; MEAN CORPUSCULAR HEMOGLOBIN 29.3 pg (27.0-34.8); MEAN CORPUSCULAR HGB CONC 33.5 g/dL (32.4-35.8); MEAN CORPUSCULAR VOLUME 87.4 fL (80-100); MEAN PLATELET VOLUME 8.9 fL (7.4-10.4); MONOCYTES # (AUTO) 0.78 x10^3/uL (0.2-0.8); MONOCYTES % (AUTO) 7 % (2-9); NEUTROPHILS # (AUTO) 6.85 x10^3/uL (1.8-6.8); NEUTROPHILS % (AUTO) 65 % (42-75); PLATELET COUNT 306 x10^3/uL (130-400); RED BLOOD COUNT 4.35 x10^6/uL (3.82-5.3); RED CELL DISTRIBUTION WIDTH 14.2 % (9.6-15.2)
[2018-02-04 14:33] LABS: ALANINE AMINOTRANSFERASE 25 U/L (12-78); ALBUMIN 3.2 g/dL (3.4-5.0); ANION GAP 8 mmol/L (5-15); CALCIUM 8.9 mg/dL (8.5-10.1); CHLORIDE 106 mmol/L (98-107); CREATININE 1.02 mg/dL (0.55-1.02)
[2018-02-04 14:35] LABS: ALKALINE PHOSPHATASE 124 U/L (45-117); BILIRUBIN,TOTAL 0.3 mg/dL (0.2-1.0); TOTAL PROTEIN 8.3 g/dL (6.4-8.2)
[2018-02-04 14:38] LABS: INTERNATIONAL NORMALIZED RATIO 0.95 (0.93-1.1); PROTHROMBIN TIME 9.8 Seconds (9.6-11.5)
== END | disposition home or self-care (01) ==
LOC: STAR 12:45
PROVIDERS: ATTEND Specialist
DX: Z01.818 Encounter for other preprocedural examination (principal); Z43.3 Encounter for attention to colostomy; C54.1 Malignant neoplasm of endometrium; E11.9 Type 2 diabetes mellitus without complications
CPT/HCPCS: 36415; 71046; 80053; 85025; 85610; 85730; 86304; 93005

== ENCOUNTER 2018-02-09 05:45 | Inpatient (IN) | payer MEDICARE ==
[~2018-02-09] VITALS: Ht 162.6 cm; Wt 103.0 kg
[~2018-02-09 05:45] MED LIST changes: +METF500T17 PO; -METF500T5 PO
[2018-02-09] MEDS ORDERED: LACTATED RINGERS 1,000 ML IV SCH (06:15)
[2018-02-09] MEDS ORDERED: FAMOTIDINE 20 MG/2 ML IVPush ONE (06:30)
[2018-02-09] MEDS ORDERED: ACETAMINOPHEN 500 MG TABLET PO ONE (06:30)
[2018-02-09] MEDS ORDERED: GABAPENTIN 300 MG CAPSULE PO ONE (06:30)
[2018-02-09] MEDS ORDERED: METOCLOPRAMIDE 5 MG/ML, 2ML IVPush ONE (06:30)
[2018-02-09] MEDS ORDERED: LORazepam 2 MG/ML, 1ML IVPush ONE (06:30)
[2018-02-09] MEDS ORDERED: INDIGO CARMINE 0.8%, 5ML ONE (06:43)
[2018-02-09] MEDS ORDERED: HEPARIN 1,000 UNITS/ML, 10ML ONE (06:43)
[2018-02-09 06:49] VITALS: BP 165/85
[2018-02-09] MEDS ORDERED: MIDAZOLAM 1 MG/ML, 2ML ONE (07:06)
[2018-02-09] MEDS ORDERED: FENTANYL PF 250 MCG/5ML ONE ×2 (07:07→10:29)
[2018-02-09] MEDS ORDERED: PROPOFOL 10 MG/ML, 20ML ONE (07:52)
[2018-02-09] MEDS ORDERED: CEFOTETAN 1 GM ONE (07:52)
[2018-02-09] MEDS ORDERED: DEXAMETHASONE 4 MG/ML, 1ML ONE (07:52)
[2018-02-09] MEDS ORDERED: ONDANSETRON 2MG/ML, 2ML ONE (07:52)
[2018-02-09] MEDS ORDERED: ROCURONIUM 10 MG/ML,10ML ONE (07:52)
[2018-02-09] MEDS: D5%-0.45NACL+KCL 20MEQ 1,000 ML IV SCH (09:20)
[2018-02-09] MEDS ORDERED: OXYcodone IR 5MG TABLET PO PRN (09:30)
[2018-02-09] MEDS ORDERED: CEFEPIME 2 GM in DEXTROSE 5% 50 ML IVPB SCH (09:30)
[2018-02-09] MEDS: ACETAMINOPHEN 500 MG TABLET PO SCH ×3 (09:30→22:25)
[2018-02-09] MEDS ORDERED: CALCIUM CARBONATE 500 MG TAB.CHEW PO PRN (09:30)
[2018-02-09] MEDS ORDERED: HALOPERIDOL 5 MG/ML IVPush PRN (09:30)
[2018-02-09] MEDS ORDERED: SCOPOLAMINE PATCH, 1.5MG PATCH.TD72 TD PRN (09:30)
[2018-02-09] MEDS ORDERED: PROMETHAZINE 12.5 MG SUPP PR PRN (10:30)
[2018-02-09] MEDS ORDERED: MORPHINE SULFATE 4 MG/ML, 1ML IVPush PRN (10:30)
[2018-02-09] MEDS ORDERED: MIDAZOLAM 1 MG/ML, 2ML IV PRN (10:30)
[2018-02-09] MEDS ORDERED: MEPERIDINE/PF 25MG/0.5ML IVPush PRN (10:30)
[2018-02-09] MEDS ORDERED: DIPHENHYDRAMINE 50 MG/ML, 1ML IVPush PRN (10:30)
[2018-02-09] MEDS ORDERED: PROMETHAZINE 25 MG SUPP PR PRN (10:30)
[2018-02-09] MEDS ORDERED: PROMETHAZINE 25 MG/ML, 1ML IV PRN (10:30)
[2018-02-09] MEDS ORDERED: OXYcodone 5 MG/5 ML ORAL.SOL UDC PO PRN (10:30)
[2018-02-09] MEDS ORDERED: LABETALOL 5MG/ML, 20ML IV PRN (10:30)
[2018-02-09] MEDS ORDERED: ONDANSETRON ODT 8 MG PO PRN (10:30)
[2018-02-09] MEDS ORDERED: EPHEDRINE 50 MG/ML, 1ML IM PRN (10:30)
[2018-02-09] MEDS ORDERED: EPHEDRINE 50 MG/ML, 1ML IVPush PRN (10:30)
[2018-02-09] MEDS ORDERED: LABETALOL 5MG/ML, 20ML ONE (10:57)
[2018-02-09] MEDS ORDERED: hydrALAzine 20 MG/ML, 1ML IV PRN (11:00)
[2018-02-09] MEDS: INSULIN LISPRO 100 UNITS/ML, PEN SQ-INSULIN SCH ×3 (11:00→20:52)
[2018-02-09] MEDS ORDERED: FENTANYL PF 100 MCG/2ML ONE (11:08)
[2018-02-09] MEDS: FENTANYL PF 100 MCG/2ML IV PRN ×2 (11:11→14:03)
[2018-02-09] MEDS ORDERED: ONDANSETRON ODT 8 MG ONE (11:37)
[2018-02-09] MEDS ORDERED: EPHEDRINE 50 MG/ML, 1ML ONE (12:06)
[2018-02-09] MEDS ORDERED: EPHEDRINE 50 MG/ML, 1ML IVPush ONE (12:30)
[2018-02-09] MEDS ORDERED: LACTATED RINGERS 500 ML IVBOLUS ONE ×2 (12:30)
[2018-02-09] MEDS ORDERED: LACTATED RINGERS 1,000 ML IVBOLUS ONE (13:30)
[2018-02-09 15:58] VITALS: BP 107/51
[2018-02-09] MEDS: CEFEPIME 2 GM in DEXTROSE 5% 100 ML IVPB SCH (16:02)
[2018-02-09] MEDS: LACTATED RINGERS 1,000 ML IV SCH ×2 (16:03→23:10)
[2018-02-09 19:57] VITALS: BP 139/70
[2018-02-09 23:35] VITALS: BP 97/50
[2018-02-10] MEDS: CEFEPIME 2 GM in DEXTROSE 5% 100 ML IVPB SCH ×2 (03:38→15:51)
[2018-02-10 03:40] VITALS: BP 94/58
[2018-02-10] MEDS: D5%-0.45NACL+KCL 20MEQ 1,000 ML IV SCH (04:23)
[2018-02-10] MEDS: ACETAMINOPHEN 500 MG TABLET PO SCH ×4 (04:28→20:45)
[2018-02-10 06:43] LABS: BASOPHILS % (AUTO) 0 % (0-1); EOSINOPHILS % (AUTO) 0 % (1-7); LYMPHOCYTES # (AUTO) 0.62 x10^3/uL (1-3.4); LYMPHOCYTES % (AUTO) 9 % (22-44); MD NO; MEAN CORPUSCULAR HEMOGLOBIN 29.7 pg (27.0-34.8); MEAN CORPUSCULAR HGB CONC 33.2 g/dL (32.4-35.8); MEAN CORPUSCULAR VOLUME 89.5 fL (80-100); MEAN PLATELET VOLUME 9.4 fL (7.4-10.4); MONOCYTES # (AUTO) 0.23 x10^3/uL (0.2-0.8); MONOCYTES % (AUTO) 3 % (2-9); NEUTROPHILS # (AUTO) 5.89 x10^3/uL (1.8-6.8); NEUTROPHILS % (AUTO) 87 % (42-75); PLATELET COUNT 263 x10^3/uL (130-400); RED BLOOD COUNT 4.12 x10^6/uL (3.82-5.3); RED CELL DISTRIBUTION WIDTH 14.9 % (9.6-15.2)
[2018-02-10 06:54] LABS: ALBUMIN 2.3 g/dL (3.4-5.0); ANION GAP 8 mmol/L (5-15); CHLORIDE 106 mmol/L (98-107)
[2018-02-10 06:55] LABS: CREATININE 1.32 mg/dL (0.55-1.02)
[2018-02-10 07:05] VITALS: BP 82/59
[2018-02-10] MEDS: INSULIN LISPRO 100 UNITS/ML, PEN SQ-INSULIN SCH ×4 (08:34→20:44)
[2018-02-10] MEDS ORDERED: ONDANSETRON 4 MG TABLET ONE (08:59)
[2018-02-10] MEDS ORDERED: ENOXAPARIN 40 MG/0.4 ML SQ SCH (09:30)
[2018-02-10] MEDS: ONDANSETRON ODT 4 MG PO PRN ×2 (09:30→15:34)
[2018-02-10] MEDS ORDERED: LACTATED RINGERS 1,000 ML IVBOLUS ONE ×2 (10:30→17:00)
[2018-02-10 12:01] VITALS: BP 71/72
[2018-02-10] MEDS: LACTATED RINGERS 1,000 ML IV SCH ×2 (16:00→18:43)
[2018-02-10 19:27] VITALS: BP 97/47
[2018-02-11 00:58] VITALS: BP 110/53
[2018-02-11] MEDS: D5%-0.45NACL+KCL 20MEQ 1,000 ML IV SCH (01:20)
[2018-02-11] MEDS: CEFEPIME 2 GM in DEXTROSE 5% 100 ML IVPB SCH ×2 (03:33→15:31)
[2018-02-11] MEDS: LACTATED RINGERS 1,000 ML IV SCH (03:34)
[2018-02-11] MEDS: ACETAMINOPHEN 500 MG TABLET PO SCH ×4 (03:53→22:10)
[2018-02-11 06:04] LABS: MEAN CORPUSCULAR HEMOGLOBIN 30.2 pg (27.0-34.8); MEAN CORPUSCULAR HGB CONC 33.3 g/dL (32.4-35.8); MEAN CORPUSCULAR VOLUME 90.8 fL (80-100); MEAN PLATELET VOLUME 9.6 fL (7.4-10.4); PLATELET COUNT 233 x10^3/uL (130-400); RED BLOOD COUNT 3.84 x10^6/uL (3.82-5.3); RED CELL DISTRIBUTION WIDTH 15.1 % (9.6-15.2)
[2018-02-11 06:12] LABS: CALCIUM 8.4 mg/dL (8.5-10.1); CHLORIDE 105 mmol/L (98-107)
[2018-02-11 06:16] LABS: ANION GAP 7 mmol/L (5-15)
[2018-02-11 06:20] LABS: MD YES
[2018-02-11 06:25] LABS: BAND#(MANUAL) 1.92 x10^3/uL; BANDS%(MANUAL) 17 % (0-7); BASOS#(MANUAL) 0.11 x10^3/uL (0-0.1); BASOS% (MANUAL) 1 % (0-1); LYMPH#(MANUAL) 0.79 x10^3/uL (1-3.4); LYMPHS% (MANUAL) 7 % (22-44); MONOS#(MANUAL) 0.23 x10^3/uL (0.3-2.7); MONOS% (MANUAL) 2 % (2-9); SEG#(MANUAL) 8.25 x10^3/uL (1.8-6.8); SEGS% (MANUAL) 73 % (42-75)
[2018-02-11 06:26] LABS: <RBC MORPHOLOGY> NORMAL
[2018-02-11 06:27] LABS: <PLATELET ESTIMATE> ADEQUATE; <PLT MORPHOLOGY> NORMAL PLT MORPH
[2018-02-11 06:43] VITALS: BP 112/48
[2018-02-11] MEDS: INSULIN LISPRO 100 UNITS/ML, PEN SQ-INSULIN SCH ×4 (07:00→21:00)
[2018-02-11] MEDS ORDERED: SODIUM CHLORIDE 0.9% 1,000ML IVBOLUS ONE ×2 (07:30→17:30)
[2018-02-11] MEDS ORDERED: SODIUM CHLORIDE 0.9% 1,000 ML IV SCH (09:30)
[2018-02-11] MEDS ORDERED: ENOXAPARIN 30 MG/0.3 ML SQ SCH (09:30)
[2018-02-11] MEDS: ONDANSETRON ODT 4 MG PO PRN (10:09)
[2018-02-11 10:25] LABS: ANION GAP 10 mmol/L (5-15); CALCIUM 8.7 mg/dL (8.5-10.1); CHLORIDE 106 mmol/L (98-107); CREATININE 1.87 mg/dL (0.55-1.02)
[2018-02-11 11:59] VITALS: BP 102/59
[2018-02-11 12:03] VITALS: BP 108/61
[2018-02-11] MEDS: SODIUM CHLORIDE 0.45% 1,000 ML IV SCH (13:19)
[2018-02-11 19:09] VITALS: BP 119/62
[2018-02-11] MEDS ORDERED: HYDROmorphone 2 MG/ML, 1ML ONE ×2 (23:11→23:39)
[2018-02-11] MEDS: HYDROmorphone 1 MG/ML, 1ML IV PRN ×2 (23:25→23:42)
[2018-02-12] MEDS: SODIUM CHLORIDE 0.45% 1,000 ML IV SCH ×5 (00:26→23:17)
[2018-02-12] MEDS ORDERED: FUROSEMIDE 20 MG/2 ML IV ONE (01:00)
[2018-02-12 01:37] VITALS: BP 121/48
[2018-02-12] MEDS ORDERED: HYDROmorphone 2 MG/ML, 1ML ONE (03:19)
[2018-02-12] MEDS: CEFEPIME 2 GM in DEXTROSE 5% 100 ML IVPB SCH ×2 (03:24→14:40)
[2018-02-12] MEDS: HYDROmorphone 1 MG/ML, 1ML IV PRN (03:25)
[2018-02-12] MEDS: ACETAMINOPHEN 500 MG TABLET PO SCH ×4 (04:10→22:10)
[2018-02-12 05:52] LABS: MEAN CORPUSCULAR HEMOGLOBIN 29.6 pg (27.0-34.8); MEAN CORPUSCULAR HGB CONC 33.4 g/dL (32.4-35.8); MEAN CORPUSCULAR VOLUME 88.8 fL (80-100); MEAN PLATELET VOLUME 9.4 fL (7.4-10.4); PLATELET COUNT 260 x10^3/uL (130-400); RED BLOOD COUNT 3.67 x10^6/uL (3.82-5.3)
[2018-02-12 06:06] LABS: ANION GAP 7 mmol/L (5-15); CHLORIDE 108 mmol/L (98-107); CREATININE 1.59 mg/dL (0.55-1.02)
[2018-02-12 06:16] LABS: MD YES
[2018-02-12 06:18] LABS: BAND#(MANUAL) 1.16 x10^3/uL; BANDS%(MANUAL) 10 % (0-7); EOS#(MANUAL) 0.12 x10^3/uL (0.0-0.4); EOS% (MANUAL) 1 % (1-7); LYMPHS% (MANUAL) 6 % (22-44); MONOS#(MANUAL) 0.23 x10^3/uL (0.3-2.7); MONOS% (MANUAL) 2 % (2-9); SEGS% (MANUAL) 81 % (42-75)
[2018-02-12 06:19] LABS: <PLATELET ESTIMATE> ADEQUATE; <PLT MORPHOLOGY> NORMAL PLT MORPH; <RBC MORPHOLOGY> NORMAL
[2018-02-12] MEDS: INSULIN LISPRO 100 UNITS/ML, PEN SQ-INSULIN SCH ×3 (07:00→23:10)
[2018-02-12 07:30] VITALS: BP 128/58
[2018-02-12] MEDS: HEPARIN 5,000 UNITS/ML, 1ML SQ SCH ×3 (09:07→23:18)
[2018-02-12 15:28] VITALS: BP 135/79
[2018-02-12 18:36] VITALS: BP 144/76
[2018-02-12] MEDS ORDERED: HALOPERIDOL 5 MG/ML IM PRN (23:00)
[2018-02-13 02:00] VITALS: BP 130/74
[2018-02-13] MEDS: CEFEPIME 2 GM in DEXTROSE 5% 100 ML IVPB SCH ×2 (04:03→15:51)
[2018-02-13] MEDS: ACETAMINOPHEN 500 MG TABLET PO SCH ×4 (04:10→21:45)
[2018-02-13] MEDS ORDERED: HYDROmorphone 2 MG/ML, 1ML ONE ×5 (04:20→21:36)
[2018-02-13] MEDS: INSULIN LISPRO 100 UNITS/ML, PEN SQ-INSULIN SCH ×4 (04:35→22:47)
[2018-02-13] MEDS: HYDROmorphone 1 MG/ML, 1ML IV PRN ×5 (05:41→21:40)
[2018-02-13 06:42] VITALS: BP 138/72
[2018-02-13 07:51] LABS: MEAN CORPUSCULAR HEMOGLOBIN 29.3 pg (27.0-34.8); MEAN CORPUSCULAR HGB CONC 32.9 g/dL (32.4-35.8); MEAN CORPUSCULAR VOLUME 88.9 fL (80-100); MEAN PLATELET VOLUME 8.6 fL (7.4-10.4); PLATELET COUNT 290 x10^3/uL (130-400); RED BLOOD COUNT 3.43 x10^6/uL (3.82-5.3); RED CELL DISTRIBUTION WIDTH 15.3 % (9.6-15.2)
[2018-02-13 08:00] LABS: ANION GAP 14 mmol/L (5-15); CALCIUM 8.1 mg/dL (8.5-10.1); CHLORIDE 105 mmol/L (98-107); CREATININE 1.14 mg/dL (0.55-1.02)
[2018-02-13] MEDS: SODIUM CHLORIDE 0.45% 1,000 ML IV SCH ×2 (08:36→15:54)
[2018-02-13] MEDS: HEPARIN 5,000 UNITS/ML, 1ML SQ SCH ×2 (08:36→15:54)
[2018-02-13] MEDS ORDERED: HALOPERIDOL 5 MG/ML IM ONE (09:00)
[2018-02-13 09:12] LABS: BASOPHILS # (AUTO) 0.01 x10^3/uL (0-0.1); BASOPHILS % (AUTO) 0 % (0-1); EOSINOPHILS % (AUTO) 0 % (1-7); LYMPHOCYTES # (AUTO) 0.63 x10^3/uL (1-3.4); LYMPHOCYTES % (AUTO) 4 % (22-44); MD SCAN; MONOCYTES # (AUTO) 0.32 x10^3/uL (0.2-0.8); MONOCYTES % (AUTO) 2 % (2-9); NEUTROPHILS # (AUTO) 14.95 x10^3/uL (1.8-6.8); NEUTROPHILS % (AUTO) 94 % (42-75)
[2018-02-13] MEDS ORDERED: FUROSEMIDE 20 MG/2 ML IV ONE (10:00)
[2018-02-13] MEDS: ONDANSETRON ODT 4 MG PO PRN (10:44)
[2018-02-13 12:32] VITALS: BP 135/67
[2018-02-13] MEDS: HALOPERIDOL 5 MG/ML IM PRN (18:48)
[2018-02-13 21:35] VITALS: BP 157/86
[2018-02-14] MEDS ORDERED: HYDROmorphone 2 MG/ML, 1ML ONE ×2 (01:34→07:27)
[2018-02-14] MEDS: SODIUM CHLORIDE 0.45% 1,000 ML IV SCH ×3 (01:40→18:47)
[2018-02-14] MEDS: HYDROmorphone 1 MG/ML, 1ML IV PRN ×2 (01:41→07:32)
[2018-02-14] MEDS: HEPARIN 5,000 UNITS/ML, 1ML SQ SCH ×3 (01:47→16:29)
[2018-02-14 03:02] VITALS: BP 132/82
[2018-02-14] MEDS: ACETAMINOPHEN 500 MG TABLET PO SCH (04:47)
[2018-02-14] MEDS: CEFEPIME 2 GM in DEXTROSE 5% 100 ML IVPB SCH (04:47)
[2018-02-14] MEDS: HALOPERIDOL 5 MG/ML IM PRN ×2 (04:54→15:50)
[2018-02-14 05:12] LABS: MEAN CORPUSCULAR HEMOGLOBIN 29.5 pg (27.0-34.8); MEAN CORPUSCULAR HGB CONC 33.2 g/dL (32.4-35.8); MEAN CORPUSCULAR VOLUME 89.1 fL (80-100); MEAN PLATELET VOLUME 8.6 fL (7.4-10.4); PLATELET COUNT 278 x10^3/uL (130-400); RED BLOOD COUNT 3.48 x10^6/uL (3.82-5.3); RED CELL DISTRIBUTION WIDTH 15.2 % (9.6-15.2)
[2018-02-14 05:17] LABS: ANION GAP 11 mmol/L (5-15); CALCIUM 8.5 mg/dL (8.5-10.1); CHLORIDE 108 mmol/L (98-107); CREATININE 0.99 mg/dL (0.55-1.02)
[2018-02-14] MEDS: INSULIN LISPRO 100 UNITS/ML, PEN SQ-INSULIN SCH ×4 (05:18→23:02)
[2018-02-14 06:03] LABS: MD YES
[2018-02-14 06:06] LABS: BAND#(MANUAL) 1.25 x10^3/uL; BANDS%(MANUAL) 12 % (0-7); LYMPH#(MANUAL) 0.21 x10^3/uL (1-3.4); LYMPHS% (MANUAL) 2 % (22-44); MONOS#(MANUAL) 0.31 x10^3/uL (0.3-2.7); MONOS% (MANUAL) 3 % (2-9); SEG#(MANUAL) 8.63 x10^3/uL (1.8-6.8); SEGS% (MANUAL) 83 % (42-75)
[2018-02-14 06:08] LABS: <PLATELET ESTIMATE> ADEQUATE; <PLT MORPHOLOGY> NORMAL PLT MORPH
[2018-02-14 06:09] LABS: ANISOCYTOSIS 1+
[2018-02-14 06:10] LABS: TOXIC GRAN 2+
[2018-02-14 06:35] VITALS: BP 103/64
[2018-02-14] MEDS ORDERED: FUROSEMIDE 20 MG/2 ML IV ONE (09:00)
[2018-02-14 13:38] VITALS: BP 106/62
[2018-02-14] MEDS: MORPHINE SULFATE 4 MG/ML, 1ML IVPush PRN ×2 (20:31→23:53)
[2018-02-14 20:40] VITALS: BP 104/66
[2018-02-15] MEDS: HEPARIN 5,000 UNITS/ML, 1ML SQ SCH ×3 (00:20→16:39)
[2018-02-15 01:26] VITALS: BP 125/84
[2018-02-15] MEDS: SODIUM CHLORIDE 0.45% 1,000 ML IV SCH ×2 (03:23→11:54)
[2018-02-15 05:31] LABS: MEAN CORPUSCULAR HEMOGLOBIN 29.3 pg (27.0-34.8); MEAN CORPUSCULAR HGB CONC 33.4 g/dL (32.4-35.8); MEAN CORPUSCULAR VOLUME 87.6 fL (80-100); MEAN PLATELET VOLUME 9.2 fL (7.4-10.4); PLATELET COUNT 317 x10^3/uL (130-400); RED BLOOD COUNT 3.51 x10^6/uL (3.82-5.3); RED CELL DISTRIBUTION WIDTH 14.9 % (9.6-15.2)
[2018-02-15 05:32] LABS: ANION GAP 14 mmol/L (5-15); CALCIUM 8.4 mg/dL (8.5-10.1); CHLORIDE 106 mmol/L (98-107); CREATININE 1.45 mg/dL (0.55-1.02)
[2018-02-15] MEDS: INSULIN LISPRO 100 UNITS/ML, PEN SQ-INSULIN SCH ×4 (06:00→19:59)
[2018-02-15 06:01] LABS: MD YES
[2018-02-15 06:03] LABS: BAND#(MANUAL) 3.85 x10^3/uL; BANDS%(MANUAL) 22 % (0-7); LYMPH#(MANUAL) 0.88 x10^3/uL (1-3.4); LYMPHS% (MANUAL) 5 % (22-44); METAMYELOCYTES# (MANUAL) 0.88 x10^3/uL (0-0); METAMYELOCYTES% (MANUAL) 5 % (0-1); MONOS#(MANUAL) 0.35 x10^3/uL (0.3-2.7); MONOS% (MANUAL) 2 % (2-9); SEG#(MANUAL) 11.55 x10^3/uL (1.8-6.8); SEGS% (MANUAL) 66 % (42-75)
[2018-02-15 06:05] LABS: <PLATELET ESTIMATE> ADEQUATE; <PLT MORPHOLOGY> NORMAL PLT MORPH; POLYCHROMASIA 1+
[2018-02-15 06:06] LABS: TOXIC GRAN 1+
[2018-02-15 06:57] VITALS: BP 119/70
[2018-02-15] MEDS ORDERED: OMNIPAQUE 350 MG/ML, 100ML BOTTLE ONE (09:08)
[2018-02-15 09:26] LABS: MICROSCOPIC INDICATED
[2018-02-15] MEDS ORDERED: FENTANYL PF 250 MCG/5ML ONE (09:59)
[2018-02-15] MEDS ORDERED: MIDAZOLAM 1 MG/ML, 2ML ONE (09:59)
[2018-02-15] MEDS ORDERED: SODIUM CHLORIDE 0.9% 1,000ML IVBOLUS ONE ×2 (10:00→23:00)
[2018-02-15] MEDS ORDERED: NEOSTIGMINE 1 MG/ML, 10ML ONE (10:24)
[2018-02-15] MEDS ORDERED: DEXAMETHASONE 4 MG/ML, 1ML ONE (10:24)
[2018-02-15] MEDS ORDERED: ROCURONIUM 10MG/ML,5ML ONE (10:24)
[2018-02-15] MEDS ORDERED: ONDANSETRON 2MG/ML, 2ML ONE (10:24)
[2018-02-15] MEDS ORDERED: GLYCOPYRROLATE 0.2MG/1ML, 5ML ONE (10:24)
[2018-02-15] MEDS ORDERED: SUCCINYLCHOLINE 20 MG/ML, 10ML ONE (10:24)
[2018-02-15] MEDS ORDERED: CEFAZOLIN 1,000 MG ONE (10:24)
[2018-02-15] MEDS ORDERED: PROPOFOL 10 MG/ML, 20ML ONE (10:24)
[2018-02-15] MEDS ORDERED: PHENYLEPHRINE 10 MG/ML ONE (10:24)
[2018-02-15] MEDS ORDERED: LORazepam 2 MG/ML, 1ML IVPush PRN (10:30)
[2018-02-15] MEDS ORDERED: PROMETHAZINE 25 MG/ML, 1ML IV PRN (10:30)
[2018-02-15] MEDS ORDERED: OXYcodone 5 MG/5 ML ORAL.SOL UDC PO PRN (10:30)
[2018-02-15] MEDS ORDERED: FENTANYL PF 100 MCG/2ML IV PRN (10:30)
[2018-02-15] MEDS ORDERED: HYDROmorphone 1 MG/ML, 1ML IV PRN (10:30)
[2018-02-15] MEDS ORDERED: ONDANSETRON ODT 8 MG PO PRN (10:30)
[2018-02-15] MEDS ORDERED: ONDANSETRON 2MG/ML, 2ML IV PRN (10:30)
[2018-02-15] MEDS ORDERED: ACETAMINOPHEN 325 MG TABLET PO PRN (10:30)
[2018-02-15] MEDS ORDERED: MORPHINE SULFATE 4 MG/ML, 1ML IVPush PRN (10:30)
[2018-02-15] MEDS ORDERED: VASOPRESSIN 20 UNIT/ML, 1ML ONE (11:00)
[2018-02-15] MEDS ORDERED: CEFOTETAN 2 GM ONE (11:00)
[2018-02-15] MEDS ORDERED: LIDOCAINE 4%, 4 ML SYR/CANN TP ONE (11:00)
[2018-02-15] MEDS ORDERED: CALCIUM CHLORIDE 10%, 10ML SYR ONE (11:00)
[2018-02-15] MEDS ORDERED: EPINEPHRINE SYRINGE 0.1 MG/ML, 10ML ONE (11:00)
[2018-02-15] MEDS ORDERED: NOREPINEPHRINE 1 MG/ML, 4ML ONE (12:11)
[2018-02-15] MEDS ORDERED: HYDROCORTISONE 100 MG INJ. ONE (12:20)
[2018-02-15] MEDS ORDERED: ALBUMIN HUMAN 5% 500 ML ONE (12:20)
[2018-02-15] MEDS ORDERED: SODIUM BICARBONATE 1 MEQ/ML, 50ML VIAL ONE (13:02)
[2018-02-15] MEDS ORDERED: PROPOFOL 100 ML IV PRN (14:30)
[2018-02-15] MEDS: PIPERACILLIN/TAZO/PMX 3.375GM 50 ML IV SCH ×2 (14:36→19:59)
[2018-02-15] MEDS ORDERED: NOREPINEPHRINE 4 MG in SODIUM CHLORIDE 0.9% 246 ML IV PRN (15:00)
[2018-02-15] MEDS: MICAFUNGIN 100 MG in SODIUM CHLORIDE 0.9% 100 ML IV SCH (15:17)
[2018-02-15] MEDS ORDERED: LIDOCAINE-MPF 1%, 2ML ENDO PRN (16:30)
[2018-02-15] MEDS: PROPOFOL 100 ML IV PRN (16:59)
[2018-02-15] MEDS: FAMOTIDINE 20 MG/2 ML IVPush SCH (19:59)
[2018-02-16] MEDS: SODIUM CHLORIDE 0.9% 1,000 ML IV SCH ×5 (00:39→21:13)
[2018-02-16] MEDS: HEPARIN 5,000 UNITS/ML, 1ML SQ SCH ×3 (01:30→18:22)
[2018-02-16] MEDS: PIPERACILLIN/TAZO/PMX 3.375GM 50 ML IV SCH ×4 (04:26→21:12)
[2018-02-16] MEDS: INSULIN LISPRO 100 UNITS/ML, PEN SQ-INSULIN SCH ×4 (04:27→21:16)
[2018-02-16 04:46] LABS: MEAN CORPUSCULAR HEMOGLOBIN 29.8 pg (27.0-34.8); MEAN CORPUSCULAR HGB CONC 33.6 g/dL (32.4-35.8); MEAN CORPUSCULAR VOLUME 88.7 fL (80-100); MEAN PLATELET VOLUME 8.9 fL (7.4-10.4); PLATELET COUNT 274 x10^3/uL (130-400); RED BLOOD COUNT 2.86 x10^6/uL (3.82-5.3); RED CELL DISTRIBUTION WIDTH 15.2 % (9.6-15.2)
[2018-02-16 04:55] LABS: ANION GAP 8 mmol/L (5-15); CALCIUM 7.4 mg/dL (8.5-10.1); CHLORIDE 112 mmol/L (98-107); CREATININE 1.81 mg/dL (0.55-1.02)
[2018-02-16] MEDS: PROPOFOL 100 ML IV PRN ×2 (05:35→14:01)
[2018-02-16 05:39] LABS: MD YES
[2018-02-16 05:41] LABS: BAND#(MANUAL) 4.77 x10^3/uL; BANDS%(MANUAL) 18 % (0-7); LYMPH#(MANUAL) 1.06 x10^3/uL (1-3.4); LYMPHS% (MANUAL) 4 % (22-44); METAMYELOCYTES# (MANUAL) 0.53 x10^3/uL (0-0); METAMYELOCYTES% (MANUAL) 2 % (0-1); SEG#(MANUAL) 20.14 x10^3/uL (1.8-6.8); SEGS% (MANUAL) 76 % (42-75)
[2018-02-16 05:42] LABS: <PLATELET ESTIMATE> ADEQUATE; <PLT MORPHOLOGY> NORMAL PLT MORPH; POLYCHROMASIA 1+; TOXIC GRAN 2+
[2018-02-16] MEDS: SODIUM BICARB 8.4%,50ML SYR. 50 MEQ in SODIUM CHLORIDE 0.45% 1,000 ML IV SCH ×2 (07:34→21:12)
[2018-02-16] MEDS: FAMOTIDINE 20 MG/2 ML IVPush SCH (09:12)
[2018-02-16] MEDS ORDERED: MAGNESIUM SULFATE PMX 4GM/100M 100 ML IV ONE (09:30)
[2018-02-16] MEDS ORDERED: INSULIN LISPRO 100 UNITS/ML, PEN SQ-INSULIN SCH (10:00)
[2018-02-16] MEDS ORDERED: TPN PER PHARMACY MC SCH (11:00)
[2018-02-16] MEDS ORDERED: FILTER, DISP 1.2 MICRON FOR TPN/PVN IV PRN (12:00)
[2018-02-16] MEDS: MICAFUNGIN 100 MG in SODIUM CHLORIDE 0.9% 100 ML IV SCH (13:59)
[2018-02-16] MEDS ORDERED: DEXTROSE 50%, 50ML SYRINGE IVPush PRN (17:00)
[2018-02-16] MEDS ORDERED: DEXTROSE 70% IV SCH (17:00)
[2018-02-16] MEDS ORDERED: SMOF TPN IV SCH (17:00)
[2018-02-16] MEDS ORDERED: AMINO ACID 10% IV SCH (17:00)
[2018-02-16] MEDS ORDERED: DEXTROSE 10% 500 ML IV PRN (17:00)
[2018-02-16] MEDS ORDERED: FAT EMUL IV SCH (17:00)
[2018-02-16] MEDS ORDERED: [UNRECOGNIZED DRUG - OTHER] IV SCH (17:00)
[2018-02-16] MEDS: MORPHINE SULFATE 4 MG/ML, 1ML IVPush PRN (21:36)
[2018-02-17] MEDS: HEPARIN 5,000 UNITS/ML, 1ML SQ SCH ×3 (01:30→17:22)
[2018-02-17] MEDS: SODIUM CHLORIDE 0.9% 1,000 ML IV SCH ×2 (01:36→08:00)
[2018-02-17] MEDS: MORPHINE SULFATE 4 MG/ML, 1ML IVPush PRN ×3 (01:36→22:12)
[2018-02-17] MEDS: PIPERACILLIN/TAZO/PMX 3.375GM 50 ML IV SCH ×4 (03:56→20:55)
[2018-02-17] MEDS: INSULIN LISPRO 100 UNITS/ML, PEN SQ-INSULIN SCH ×4 (04:23→20:55)
[2018-02-17] MEDS: SODIUM BICARB 8.4%,50ML SYR. 50 MEQ in SODIUM CHLORIDE 0.45% 1,000 ML IV SCH (04:24)
[2018-02-17 04:48] LABS: MEAN CORPUSCULAR HEMOGLOBIN 28.8 pg (27.0-34.8); MEAN CORPUSCULAR HGB CONC 32.9 g/dL (32.4-35.8); MEAN CORPUSCULAR VOLUME 87.6 fL (80-100); PLATELET COUNT 252 x10^3/uL (130-400); RED BLOOD COUNT 2.56 x10^6/uL (3.82-5.3); RED CELL DISTRIBUTION WIDTH 15.8 % (9.6-15.2)
[2018-02-17 04:55] LABS: CHLORIDE 113 mmol/L (98-107)
[2018-02-17 05:07] LABS: ALANINE AMINOTRANSFERASE 14 U/L (12-78); ALBUMIN 1.1 g/dL (3.4-5.0); ALKALINE PHOSPHATASE 83 U/L (45-117); ANION GAP 11 mmol/L (5-15); BILIRUBIN,TOTAL 0.6 mg/dL (0.2-1.0); CALCIUM 6.7 mg/dL (8.5-10.1); CREATININE 1.73 mg/dL (0.55-1.02); PREALBUMIN 5.2 mg/dL (20.0-40.0); TOTAL PROTEIN 4.5 g/dL (6.4-8.2); TRIGLYCERIDES 285 mg/dL (50-200)
[2018-02-17 05:34] LABS: MD YES
[2018-02-17 05:36] LABS: <PLATELET ESTIMATE> ADEQUATE; <PLT MORPHOLOGY> NORMAL PLT MORPH; BAND#(MANUAL) 3.76 x10^3/uL; BANDS%(MANUAL) 12 % (0-7); LYMPH#(MANUAL) 0.31 x10^3/uL (1-3.4); LYMPHS% (MANUAL) 1 % (22-44); MYELOCYTES# (MANUAL) 0.31 x10^3/uL (0-0); MYELOCYTES% (MANUAL) 1 % (0-0); POLYCHROMASIA 1+; SEG#(MANUAL) 26.92 x10^3/uL (1.8-6.8); SEGS% (MANUAL) 86 % (42-75); TOXIC GRAN 1+
[2018-02-17] MEDS: PROPOFOL 100 ML IV PRN (05:50)
[2018-02-17] MEDS ORDERED: SODIUM CHLORIDE 0.9% 1,000 ML IV SCH (08:30)
[2018-02-17] MEDS: MICAFUNGIN 100 MG in SODIUM CHLORIDE 0.9% 100 ML IV SCH (14:27)
[2018-02-17] MEDS ORDERED: SMOF TPN IV SCH (17:00)
[2018-02-17] MEDS ORDERED: DEXTROSE 70% IV SCH (17:00)
[2018-02-17] MEDS ORDERED: AMINO ACID 10% IV SCH (17:00)
[2018-02-17] MEDS ORDERED: [UNRECOGNIZED DRUG - OTHER] IV SCH (17:00)
[2018-02-17] MEDS ORDERED: FAT EMUL IV SCH (17:00)
[2018-02-18] MEDS: HEPARIN 5,000 UNITS/ML, 1ML SQ SCH ×3 (01:22→17:01)
[2018-02-18] MEDS: PROPOFOL 100 ML IV PRN ×3 (01:22→23:23)
[2018-02-18] MEDS: PIPERACILLIN/TAZO/PMX 3.375GM 50 ML IV SCH ×4 (02:38→21:27)
[2018-02-18] MEDS: MORPHINE SULFATE 4 MG/ML, 1ML IVPush PRN ×6 (02:38→21:27)
[2018-02-18] MEDS: INSULIN LISPRO 100 UNITS/ML, PEN SQ-INSULIN SCH ×5 (04:42→23:27)
[2018-02-18 04:46] LABS: MEAN PLATELET VOLUME 9.5 fL (7.4-10.4); PLATELET COUNT 227 x10^3/uL (130-400)
[2018-02-18 05:08] LABS: ALANINE AMINOTRANSFERASE 12 U/L (12-78); ALBUMIN 0.9 g/dL (3.4-5.0); ANION GAP 10 mmol/L (5-15); CALCIUM 6.7 mg/dL (8.5-10.1); CHLORIDE 110 mmol/L (98-107); CREATININE 1.63 mg/dL (0.55-1.02); TRIGLYCERIDES 306 mg/dL (50-200)
[2018-02-18 05:10] LABS: ALKALINE PHOSPHATASE 121 U/L (45-117); BILIRUBIN,TOTAL 0.7 mg/dL (0.2-1.0); TOTAL PROTEIN 4.9 g/dL (6.4-8.2)
[2018-02-18 05:20] LABS: MD YES; MEAN CORPUSCULAR HEMOGLOBIN 29.9 pg (27.0-34.8); MEAN CORPUSCULAR HGB CONC 34.1 g/dL (32.4-35.8); MEAN CORPUSCULAR VOLUME 87.8 fL (80-100); RED BLOOD COUNT 2.66 x10^6/uL (3.82-5.3); RED CELL DISTRIBUTION WIDTH 15.8 % (9.6-15.2)
[2018-02-18 05:25] LABS: ANISOCYTOSIS 1+; BAND#(MANUAL) 1.22 x10^3/uL; BANDS%(MANUAL) 4 % (0-7); LYMPH#(MANUAL) 0.92 x10^3/uL (1-3.4); LYMPHS% (MANUAL) 3 % (22-44); MONOS#(MANUAL) 0.31 x10^3/uL (0.3-2.7); MONOS% (MANUAL) 1 % (2-9); POLYCHROMASIA 1+; SEG#(MANUAL) 28.06 x10^3/uL (1.8-6.8); SEGS% (MANUAL) 92 % (42-75)
[2018-02-18 05:26] LABS: <PLATELET ESTIMATE> ADEQUATE; <PLT MORPHOLOGY> NORMAL PLT MORPH; TOXIC GRAN 1+
[2018-02-18] MEDS: MICAFUNGIN 100 MG in SODIUM CHLORIDE 0.9% 100 ML IV SCH (15:03)
[2018-02-18] MEDS ORDERED: [UNRECOGNIZED DRUG - OTHER] IV SCH (17:00)
[2018-02-18] MEDS ORDERED: DEXTROSE 70% IV SCH (17:00)
[2018-02-18] MEDS ORDERED: FILTER, DISP 1.2 MICRON FOR TPN/PVN IV PRN (17:00)
[2018-02-18] MEDS ORDERED: AMINO ACID 10% IV SCH (17:00)
[2018-02-18] MEDS ORDERED: SMOF TPN IV SCH (17:00)
[2018-02-18] MEDS ORDERED: FAT EMUL IV SCH (17:00)
[2018-02-18] MEDS ORDERED: LACTATED RINGERS 500 ML IVBOLUS ONE (21:00)
[2018-02-18] MEDS ORDERED: ALBUMIN HUMAN 25% 100 ML IV ONE (21:00)
[2018-02-19] MEDS: HEPARIN 5,000 UNITS/ML, 1ML SQ SCH ×3 (03:16→16:58)
[2018-02-19] MEDS: PIPERACILLIN/TAZO/PMX 3.375GM 50 ML IV SCH ×4 (03:17→19:56)
[2018-02-19 05:54] LABS: MEAN CORPUSCULAR HEMOGLOBIN 30.1 pg (27.0-34.8); MEAN CORPUSCULAR HGB CONC 34.3 g/dL (32.4-35.8); MEAN CORPUSCULAR VOLUME 87.9 fL (80-100); MEAN PLATELET VOLUME 9.9 fL (7.4-10.4); PLATELET COUNT 217 x10^3/uL (130-400); RED BLOOD COUNT 2.63 x10^6/uL (3.82-5.3)
[2018-02-19 06:06] LABS: ANION GAP 10 mmol/L (5-15); CALCIUM 7.5 mg/dL (8.5-10.1); CHLORIDE 108 mmol/L (98-107); CREATININE 1.41 mg/dL (0.55-1.02)
[2018-02-19] MEDS: INSULIN LISPRO 100 UNITS/ML, PEN SQ-INSULIN SCH ×4 (06:19→23:52)
[2018-02-19 06:22] LABS: MD YES
[2018-02-19 06:24] LABS: BAND#(MANUAL) 1.22 x10^3/uL; BANDS%(MANUAL) 6 % (0-7); SEGS% (MANUAL) 84 % (42-75)
[2018-02-19 06:25] LABS: ANISOCYTOSIS 1+; EOS#(MANUAL) 0.61 x10^3/uL (0.0-0.4); EOS% (MANUAL) 3 % (1-7); LYMPH#(MANUAL) 0.61 x10^3/uL (1-3.4); LYMPHS% (MANUAL) 3 % (22-44); MONOS#(MANUAL) 0.82 x10^3/uL (0.3-2.7); MONOS% (MANUAL) 4 % (2-9); POLYCHROMASIA 1+; SEG#(MANUAL) 17.14 x10^3/uL (1.8-6.8)
[2018-02-19 06:26] LABS: <PLATELET ESTIMATE> ADEQUATE; <PLT MORPHOLOGY> NORMAL PLT MORPH; TOXIC GRAN 1+
[2018-02-19] MEDS: MORPHINE SULFATE 4 MG/ML, 1ML IVPush PRN ×4 (07:23→19:54)
[2018-02-19] MEDS: MICAFUNGIN 100 MG in SODIUM CHLORIDE 0.9% 100 ML IV SCH (14:39)
[2018-02-19] MEDS ORDERED: FILTER, DISP 1.2 MICRON FOR TPN/PVN IV PRN (17:00)
[2018-02-19] MEDS ORDERED: [UNRECOGNIZED DRUG - OTHER] IV SCH (17:00)
[2018-02-19] MEDS ORDERED: DEXTROSE 70% IV SCH (17:00)
[2018-02-19] MEDS ORDERED: AMINO ACID 10% IV SCH (17:00)
[2018-02-19] MEDS ORDERED: SMOF TPN IV SCH (17:00)
[2018-02-19] MEDS ORDERED: FAT EMUL IV SCH (17:00)
[2018-02-20] MEDS: MORPHINE SULFATE 4 MG/ML, 1ML IVPush PRN ×4 (02:49→18:52)
[2018-02-20] MEDS: HEPARIN 5,000 UNITS/ML, 1ML SQ SCH ×3 (02:49→16:54)
[2018-02-20] MEDS: PIPERACILLIN/TAZO/PMX 3.375GM 50 ML IV SCH ×4 (02:49→22:02)
[2018-02-20] MEDS: INSULIN LISPRO 100 UNITS/ML, PEN SQ-INSULIN SCH ×4 (04:46→23:07)
[2018-02-20 05:36] LABS: MEAN CORPUSCULAR HEMOGLOBIN 29.7 pg (27.0-34.8); MEAN CORPUSCULAR HGB CONC 33.8 g/dL (32.4-35.8); MEAN CORPUSCULAR VOLUME 88.1 fL (80-100); MEAN PLATELET VOLUME 10.1 fL (7.4-10.4); PLATELET COUNT 241 x10^3/uL (130-400); RED BLOOD COUNT 2.63 x10^6/uL (3.82-5.3); RED CELL DISTRIBUTION WIDTH 16.2 % (9.6-15.2)
[2018-02-20 05:40] LABS: ANION GAP 8 mmol/L (5-15); CALCIUM 7.6 mg/dL (8.5-10.1); CHLORIDE 109 mmol/L (98-107)
[2018-02-20 05:43] LABS: ALANINE AMINOTRANSFERASE 9 U/L (12-78); ALKALINE PHOSPHATASE 105 U/L (45-117); BILIRUBIN,TOTAL 0.8 mg/dL (0.2-1.0); CREATININE 1.27 mg/dL (0.55-1.02); TOTAL PROTEIN 5.2 g/dL (6.4-8.2)
[2018-02-20 06:16] LABS: MD YES
[2018-02-20 06:18] LABS: BAND#(MANUAL) 1.59 x10^3/uL; BANDS%(MANUAL) 9 % (0-7); EOS#(MANUAL) 0.18 x10^3/uL (0.0-0.4); EOS% (MANUAL) 1 % (1-7); LYMPH#(MANUAL) 0.53 x10^3/uL (1-3.4); LYMPHS% (MANUAL) 3 % (22-44); METAMYELOCYTES# (MANUAL) 0.35 x10^3/uL (0-0); METAMYELOCYTES% (MANUAL) 2 % (0-1); MONOS% (MANUAL) 13 % (2-9); SEG#(MANUAL) 12.74 x10^3/uL (1.8-6.8); SEGS% (MANUAL) 72 % (42-75)
[2018-02-20 06:19] LABS: <PLATELET ESTIMATE> ADEQUATE; <PLT MORPHOLOGY> NORMAL PLT MORPH; ANISOCYTOSIS 1+; POLYCHROMASIA 1+; TOXIC GRAN 1+
[2018-02-20] MEDS: MICAFUNGIN 100 MG in SODIUM CHLORIDE 0.9% 100 ML IV SCH (13:42)
[2018-02-20] MEDS ORDERED: FAT EMUL IV SCH (17:00)
[2018-02-20] MEDS ORDERED: SMOF TPN IV SCH (17:00)
[2018-02-20] MEDS ORDERED: [UNRECOGNIZED DRUG - OTHER] IV SCH (17:00)
[2018-02-20] MEDS ORDERED: DEXTROSE 70% IV SCH (17:00)
[2018-02-20] MEDS ORDERED: AMINO ACID 10% IV SCH (17:00)
[2018-02-20 17:53] VITALS: BP 152/80
[2018-02-20 21:34] VITALS: BP 161/78
[2018-02-21] MEDS: MORPHINE SULFATE 4 MG/ML, 1ML IVPush PRN ×3 (00:02→18:34)
[2018-02-21] MEDS: HEPARIN 5,000 UNITS/ML, 1ML SQ SCH ×3 (02:45→18:01)
[2018-02-21] MEDS: PIPERACILLIN/TAZO/PMX 3.375GM 50 ML IV SCH (02:45)
[2018-02-21 02:55] VITALS: BP 163/80
[2018-02-21] MEDS: INSULIN LISPRO 100 UNITS/ML, PEN SQ-INSULIN SCH ×4 (05:07→23:55)
[2018-02-21 05:52] LABS: CHLORIDE 109 mmol/L (98-107)
[2018-02-21 05:59] LABS: MEAN CORPUSCULAR HEMOGLOBIN 29.1 pg (27.0-34.8); MEAN CORPUSCULAR HGB CONC 33.1 g/dL (32.4-35.8); MEAN CORPUSCULAR VOLUME 87.7 fL (80-100); MEAN PLATELET VOLUME 9.4 fL (7.4-10.4); PLATELET COUNT 338 x10^3/uL (130-400); RED BLOOD COUNT 2.69 x10^6/uL (3.82-5.3); RED CELL DISTRIBUTION WIDTH 15.7 % (9.6-15.2)
[2018-02-21 06:00] LABS: ALANINE AMINOTRANSFERASE 7 U/L (12-78); ALBUMIN 0.9 g/dL (3.4-5.0); ALKALINE PHOSPHATASE 123 U/L (45-117); ANION GAP 6 mmol/L (5-15); BILIRUBIN,TOTAL 0.8 mg/dL (0.2-1.0); CALCIUM 8.1 mg/dL (8.5-10.1); CREATININE 1.08 mg/dL (0.55-1.02); TOTAL PROTEIN 5.6 g/dL (6.4-8.2)
[2018-02-21 06:17] LABS: MD YES
[2018-02-21 06:19] LABS: ANISOCYTOSIS 1+; BANDS%(MANUAL) 9 % (0-7); EOS#(MANUAL) 0.16 x10^3/uL (0.0-0.4); EOS% (MANUAL) 1 % (1-7); LYMPH#(MANUAL) 1.72 x10^3/uL (1-3.4); LYMPHS% (MANUAL) 11 % (22-44); METAMYELOCYTES# (MANUAL) 0.16 x10^3/uL (0-0); METAMYELOCYTES% (MANUAL) 1 % (0-1); MONOS#(MANUAL) 0.94 x10^3/uL (0.3-2.7); MONOS% (MANUAL) 6 % (2-9); POLYCHROMASIA 1+; SEG#(MANUAL) 11.23 x10^3/uL (1.8-6.8); SEGS% (MANUAL) 72 % (42-75); TOXIC GRAN 1+
[2018-02-21 06:20] LABS: <PLATELET ESTIMATE> ADEQUATE; <PLT MORPHOLOGY> NORMAL PLT MORPH
[2018-02-21] MEDS ORDERED: MAGNESIUM SULFATE PMX 4GM/100M 100 ML IV ONE (08:00)
[2018-02-21 08:21] VITALS: BP 164/83
[2018-02-21] MEDS: FLUCONAZOLE 200 MG/100 ML 100 ML IV SCH (08:57)
[2018-02-21] MEDS: METRONIDAZOLE PMX 500MG/100ML 100 ML IV SCH ×2 (10:09→17:41)
[2018-02-21] MEDS: LINEZOLID PMX 600MG/300ML 300 ML IV SCH ×2 (11:31→23:56)
[2018-02-21 13:06] VITALS: BP 165/84
[2018-02-21] MEDS: FILTER, DISP 1.2 MICRON FOR TPN/PVN IV PRN (16:26)
[2018-02-21] MEDS ORDERED: FAT EMUL IV SCH (17:00)
[2018-02-21] MEDS ORDERED: SMOF TPN IV SCH (17:00)
[2018-02-21] MEDS ORDERED: AMINO ACID 10% IV SCH (17:00)
[2018-02-21] MEDS ORDERED: [UNRECOGNIZED DRUG - OTHER] IV SCH (17:00)
[2018-02-21] MEDS ORDERED: DEXTROSE 70% IV SCH (17:00)
[2018-02-21] MEDS: ONDANSETRON ODT 4 MG PO PRN (18:34)
[2018-02-21 19:52] VITALS: BP 152/79
[2018-02-22 02:26] VITALS: BP 155/75
[2018-02-22] MEDS: HEPARIN 5,000 UNITS/ML, 1ML SQ SCH ×3 (02:30→18:21)
[2018-02-22] MEDS: METRONIDAZOLE PMX 500MG/100ML 100 ML IV SCH ×3 (02:30→18:23)
[2018-02-22 04:46] LABS: ALANINE AMINOTRANSFERASE 7 U/L (12-78); ALBUMIN 0.9 g/dL (3.4-5.0); ANION GAP 7 mmol/L (5-15); CHLORIDE 109 mmol/L (98-107); CREATININE 0.98 mg/dL (0.55-1.02)
[2018-02-22 04:48] LABS: MEAN CORPUSCULAR VOLUME 87.4 fL (80-100); RED BLOOD COUNT 2.64 x10^6/uL (3.82-5.3)
[2018-02-22 04:49] LABS: ALKALINE PHOSPHATASE 138 U/L (45-117); BILIRUBIN,TOTAL 0.5 mg/dL (0.2-1.0); MEAN CORPUSCULAR HEMOGLOBIN 29.2 pg (27.0-34.8); MEAN CORPUSCULAR HGB CONC 33.4 g/dL (32.4-35.8); MEAN PLATELET VOLUME 9.7 fL (7.4-10.4); PLATELET COUNT 390 x10^3/uL (130-400); RED CELL DISTRIBUTION WIDTH 15.7 % (9.6-15.2)
[2018-02-22 05:41] LABS: MD YES
[2018-02-22 05:43] LABS: ANISOCYTOSIS 1+; BAND#(MANUAL) 1.67 x10^3/uL; BANDS%(MANUAL) 12 % (0-7); LYMPH#(MANUAL) 1.25 x10^3/uL (1-3.4); LYMPHS% (MANUAL) 9 % (22-44); MONOS% (MANUAL) 5 % (2-9); MYELOCYTES# (MANUAL) 0.14 x10^3/uL (0-0); MYELOCYTES% (MANUAL) 1 % (0-0); SEG#(MANUAL) 10.15 x10^3/uL (1.8-6.8); SEGS% (MANUAL) 73 % (42-75)
[2018-02-22 05:44] LABS: <PLATELET ESTIMATE> ADEQUATE; <PLT MORPHOLOGY> NORMAL PLT MORPH; POLYCHROMASIA 1+; TOXIC GRAN 1+
[2018-02-22] MEDS: INSULIN LISPRO 100 UNITS/ML, PEN SQ-INSULIN SCH ×4 (06:21→23:30)
[2018-02-22] MEDS: FLUCONAZOLE 200 MG/100 ML 100 ML IV SCH (08:24)
[2018-02-22 08:42] VITALS: BP 155/75
[2018-02-22] MEDS: MORPHINE SULFATE 4 MG/ML, 1ML IVPush PRN (09:14)
[2018-02-22] MEDS: LINEZOLID PMX 600MG/300ML 300 ML IV SCH ×2 (11:31→23:38)
[2018-02-22 14:42] VITALS: BP 165/80
[2018-02-22] MEDS ORDERED: AMINO ACID 10% IV SCH (17:00)
[2018-02-22] MEDS ORDERED: SMOF TPN IV SCH (17:00)
[2018-02-22] MEDS ORDERED: [UNRECOGNIZED DRUG - OTHER] IV SCH (17:00)
[2018-02-22] MEDS ORDERED: DEXTROSE 70% IV SCH (17:00)
[2018-02-22] MEDS ORDERED: FAT EMUL IV SCH (17:00)
[2018-02-22] MEDS: FILTER, DISP 1.2 MICRON FOR TPN/PVN IV PRN (18:22)
[2018-02-22 19:19] VITALS: BP 149/77
[2018-02-23 01:31] VITALS: BP 155/73
[2018-02-23] MEDS: HEPARIN 5,000 UNITS/ML, 1ML SQ SCH ×3 (01:39→17:22)
[2018-02-23] MEDS: METRONIDAZOLE PMX 500MG/100ML 100 ML IV SCH ×3 (01:39→17:44)
[2018-02-23] MEDS: INSULIN LISPRO 100 UNITS/ML, PEN SQ-INSULIN SCH ×4 (05:45→23:30)
[2018-02-23 06:05] LABS: MEAN CORPUSCULAR HEMOGLOBIN 29.3 pg (27.0-34.8); MEAN CORPUSCULAR VOLUME 88.8 fL (80-100); MEAN PLATELET VOLUME 8.9 fL (7.4-10.4); PLATELET COUNT 439 x10^3/uL (130-400); RED BLOOD COUNT 2.62 x10^6/uL (3.82-5.3); RED CELL DISTRIBUTION WIDTH 16.1 % (9.6-15.2)
[2018-02-23 06:16] LABS: ALBUMIN 0.9 g/dL (3.4-5.0); ANION GAP 5 mmol/L (5-15); CALCIUM 7.9 mg/dL (8.5-10.1); CHLORIDE 107 mmol/L (98-107)
[2018-02-23 06:21] LABS: ALANINE AMINOTRANSFERASE 8 U/L (12-78); ALKALINE PHOSPHATASE 158 U/L (45-117); BILIRUBIN,TOTAL 0.4 mg/dL (0.2-1.0); CREATININE 0.88 mg/dL (0.55-1.02); PREALBUMIN 5.9 mg/dL (20.0-40.0)
[2018-02-23 07:27] LABS: MD YES
[2018-02-23 07:29] LABS: BANDS%(MANUAL) 2 % (0-7); EOS#(MANUAL) 0.15 x10^3/uL (0.0-0.4); EOS% (MANUAL) 1 % (1-7); LYMPH#(MANUAL) 1.78 x10^3/uL (1-3.4); LYMPHS% (MANUAL) 12 % (22-44); MONOS#(MANUAL) 1.04 x10^3/uL (0.3-2.7); MONOS% (MANUAL) 7 % (2-9); SEG#(MANUAL) 11.54 x10^3/uL (1.8-6.8); SEGS% (MANUAL) 78 % (42-75)
[2018-02-23 07:30] LABS: <PLATELET ESTIMATE> INCREASED; <PLT MORPHOLOGY> NORMAL PLT MORPH; ANISOCYTOSIS 1+; POLYCHROMASIA 1+
[2018-02-23] MEDS: FLUCONAZOLE 200 MG/100 ML 100 ML IV SCH (08:16)
[2018-02-23 08:18] VITALS: BP 152/87
[2018-02-23] MEDS: LINEZOLID PMX 600MG/300ML 300 ML IV SCH ×2 (12:20→23:41)
[2018-02-23 13:32] VITALS: BP 178/81
[2018-02-23] MEDS: ONDANSETRON ODT 4 MG PO PRN (14:07)
[2018-02-23] MEDS: MORPHINE SULFATE 4 MG/ML, 1ML IVPush PRN (14:07)
[2018-02-23 15:01] VITALS: BP 155/72
[2018-02-23] MEDS ORDERED: FAT EMUL IV SCH (17:00)
[2018-02-23] MEDS ORDERED: DEXTROSE 70% IV SCH (17:00)
[2018-02-23] MEDS ORDERED: AMINO ACID 10% IV SCH (17:00)
[2018-02-23] MEDS ORDERED: SMOF TPN IV SCH (17:00)
[2018-02-23] MEDS ORDERED: [UNRECOGNIZED DRUG - OTHER] IV SCH (17:00)
[2018-02-23] MEDS: FILTER, DISP 1.2 MICRON FOR TPN/PVN IV PRN (17:22)
[2018-02-23 20:16] VITALS: BP 173/72
[2018-02-23 21:23] VITALS: BP 168/78
[2018-02-24 01:26] VITALS: BP 161/73
[2018-02-24] MEDS: METRONIDAZOLE PMX 500MG/100ML 100 ML IV SCH ×3 (01:30→17:52)
[2018-02-24] MEDS: HEPARIN 5,000 UNITS/ML, 1ML SQ SCH ×3 (01:30→16:54)
[2018-02-24] MEDS: INSULIN LISPRO 100 UNITS/ML, PEN SQ-INSULIN SCH ×4 (05:30→23:30)
[2018-02-24 05:58] LABS: BASOPHILS # (AUTO) 0.01 x10^3/uL (0-0.1); BASOPHILS % (AUTO) 0 % (0-1); EOSINOPHILS # (AUTO) 0.05 x10^3/uL (0-0.4); EOSINOPHILS % (AUTO) 0 % (1-7); LYMPHOCYTES # (AUTO) 1.44 x10^3/uL (1-3.4); LYMPHOCYTES % (AUTO) 10 % (22-44); MD NO; MEAN CORPUSCULAR HEMOGLOBIN 29.8 pg (27.0-34.8); MEAN CORPUSCULAR HGB CONC 33.2 g/dL (32.4-35.8); MEAN CORPUSCULAR VOLUME 89.7 fL (80-100); MEAN PLATELET VOLUME 9.1 fL (7.4-10.4); MONOCYTES # (AUTO) 1.15 x10^3/uL (0.2-0.8); MONOCYTES % (AUTO) 8 % (2-9); NEUTROPHILS # (AUTO) 12.39 x10^3/uL (1.8-6.8); NEUTROPHILS % (AUTO) 82 % (42-75); PLATELET COUNT 448 x10^3/uL (130-400); RED BLOOD COUNT 2.51 x10^6/uL (3.82-5.3); RED CELL DISTRIBUTION WIDTH 15.8 % (9.6-15.2)
[2018-02-24 06:03] LABS: CHLORIDE 106 mmol/L (98-107)
[2018-02-24 06:13] LABS: ALBUMIN 0.8 g/dL (3.4-5.0); ALKALINE PHOSPHATASE 157 U/L (45-117); ANION GAP 6 mmol/L (5-15); CALCIUM 7.9 mg/dL (8.5-10.1); CREATININE 0.84 mg/dL (0.55-1.02); TOTAL PROTEIN 6.1 g/dL (6.4-8.2)
[2018-02-24 06:16] LABS: ALANINE AMINOTRANSFERASE < 6 U/L (12-78)
[2018-02-24 08:28] VITALS: BP 159/79
[2018-02-24] MEDS: FLUCONAZOLE 200 MG/100 ML 100 ML IV SCH (08:31)
[2018-02-24 10:26] LABS: MICROSCOPIC INDICATED
[2018-02-24 10:34] LABS: CULTURE INDICATED? NO
[2018-02-24] MEDS ORDERED: OMNIPAQUE 350 MG/ML, 100ML BOTTLE ONE (12:05)
[2018-02-24] MEDS: LINEZOLID PMX 600MG/300ML 300 ML IV SCH ×2 (12:07→23:46)
[2018-02-24 12:14] VITALS: BP 168/76
[2018-02-24] MEDS: FUROSEMIDE 20 MG/2 ML IV SCH (16:55)
[2018-02-24] MEDS ORDERED: AMINO ACID 10% IV SCH (17:00)
[2018-02-24] MEDS ORDERED: DEXTROSE 70% IV SCH (17:00)
[2018-02-24] MEDS ORDERED: FAT EMUL IV SCH (17:00)
[2018-02-24] MEDS ORDERED: SMOF TPN IV SCH (17:00)
[2018-02-24] MEDS ORDERED: [UNRECOGNIZED DRUG - OTHER] IV SCH (17:00)
[2018-02-24] MEDS: FILTER, DISP 1.2 MICRON FOR TPN/PVN IV PRN (17:52)
[2018-02-24 20:08] VITALS: BP 171/78
[2018-02-25] MEDS: HEPARIN 5,000 UNITS/ML, 1ML SQ SCH ×3 (01:44→17:38)
[2018-02-25] MEDS: METRONIDAZOLE PMX 500MG/100ML 100 ML IV SCH ×3 (01:44→17:29)
[2018-02-25 03:30] VITALS: BP 164/79
[2018-02-25] MEDS: INSULIN LISPRO 100 UNITS/ML, PEN SQ-INSULIN SCH ×4 (05:30→23:30)
[2018-02-25 06:20] LABS: MEAN CORPUSCULAR HEMOGLOBIN 29.7 pg (27.0-34.8); MEAN CORPUSCULAR HGB CONC 33.2 g/dL (32.4-35.8); MEAN CORPUSCULAR VOLUME 89.3 fL (80-100); MEAN PLATELET VOLUME 8.9 fL (7.4-10.4); PLATELET COUNT 475 x10^3/uL (130-400); RED BLOOD COUNT 2.37 x10^6/uL (3.82-5.3); RED CELL DISTRIBUTION WIDTH 16.1 % (9.6-15.2)
[2018-02-25 06:27] LABS: ANION GAP 5 mmol/L (5-15); CALCIUM 7.8 mg/dL (8.5-10.1); CHLORIDE 105 mmol/L (98-107)
[2018-02-25 06:42] LABS: BASOPHILS # (AUTO) 0.09 x10^3/uL (0-0.1); BASOPHILS % (AUTO) 1 % (0-1); EOSINOPHILS # (AUTO) 0.11 x10^3/uL (0-0.4); EOSINOPHILS % (AUTO) 1 % (1-7); LYMPHOCYTES # (AUTO) 1.28 x10^3/uL (1-3.4); LYMPHOCYTES % (AUTO) 9 % (22-44); MD SCAN; MONOCYTES # (AUTO) 1.09 x10^3/uL (0.2-0.8); MONOCYTES % (AUTO) 8 % (2-9); NEUTROPHILS # (AUTO) 11.53 x10^3/uL (1.8-6.8); NEUTROPHILS % (AUTO) 82 % (42-75)
[2018-02-25 06:55] LABS: CREATININE 0.81 mg/dL (0.55-1.02)
[2018-02-25 07:31] VITALS: BP 157/70
[2018-02-25] MEDS: FUROSEMIDE 20 MG/2 ML IV SCH ×2 (08:27→17:38)
[2018-02-25] MEDS: FLUCONAZOLE 200 MG/100 ML 100 ML IV SCH (08:28)
[2018-02-25] MEDS: LINEZOLID PMX 600MG/300ML 300 ML IV SCH ×2 (11:31→23:37)
[2018-02-25 12:48] VITALS: BP 158/78
[2018-02-25] MEDS: ONDANSETRON ODT 4 MG PO PRN (13:22)
[2018-02-25 13:52] LABS: FREE T4 (FREE THYROXINE) 1.44 ng/dL (0.76-1.46)
[2018-02-25] MEDS ORDERED: SMOF TPN IV SCH (17:00)
[2018-02-25] MEDS ORDERED: AMINO ACID 10% IV SCH (17:00)
[2018-02-25] MEDS ORDERED: FAT EMUL IV SCH (17:00)
[2018-02-25] MEDS ORDERED: [UNRECOGNIZED DRUG - OTHER] IV SCH (17:00)
[2018-02-25] MEDS ORDERED: DEXTROSE 70% IV SCH (17:00)
[2018-02-25] MEDS: FILTER, DISP 1.2 MICRON FOR TPN/PVN IV PRN (17:14)
[2018-02-25 19:46] VITALS: BP 162/76
[2018-02-26] MEDS: METRONIDAZOLE PMX 500MG/100ML 100 ML IV SCH ×3 (01:43→20:23)
[2018-02-26] MEDS: HEPARIN 5,000 UNITS/ML, 1ML SQ SCH ×3 (01:44→16:50)
[2018-02-26 02:29] VITALS: BP 162/83
[2018-02-26] MEDS: INSULIN LISPRO 100 UNITS/ML, PEN SQ-INSULIN SCH ×3 (05:30→18:07)
[2018-02-26] MEDS: LEVOTHYROXINE 25 MCG TABLET PO SCH (06:04)
[2018-02-26 06:30] LABS: MEAN CORPUSCULAR HEMOGLOBIN 30.5 pg (27.0-34.8); MEAN CORPUSCULAR HGB CONC 34.1 g/dL (32.4-35.8); MEAN CORPUSCULAR VOLUME 89.5 fL (80-100); MEAN PLATELET VOLUME 8.5 fL (7.4-10.4); PLATELET COUNT 471 x10^3/uL (130-400); RED CELL DISTRIBUTION WIDTH 16.2 % (9.6-15.2)
[2018-02-26 06:38] LABS: ALBUMIN 0.9 g/dL (3.4-5.0); ANION GAP 8 mmol/L (5-15); CALCIUM 7.7 mg/dL (8.5-10.1); CHLORIDE 102 mmol/L (98-107)
[2018-02-26 06:43] LABS: ALANINE AMINOTRANSFERASE 6 U/L (12-78); ALKALINE PHOSPHATASE 204 U/L (45-117); BILIRUBIN,TOTAL 0.4 mg/dL (0.2-1.0); CREATININE 0.77 mg/dL (0.55-1.02); TOTAL PROTEIN 6.4 g/dL (6.4-8.2); TRIGLYCERIDES 118 mg/dL (50-200)
[2018-02-26 06:56] LABS: BASOPHILS # (AUTO) 0.07 x10^3/uL (0-0.1); BASOPHILS % (AUTO) 0 % (0-1); EOSINOPHILS # (AUTO) 0.07 x10^3/uL (0-0.4); EOSINOPHILS % (AUTO) 1 % (1-7); LYMPHOCYTES # (AUTO) 1.45 x10^3/uL (1-3.4); LYMPHOCYTES % (AUTO) 10 % (22-44); MD SCAN; MONOCYTES # (AUTO) 1.06 x10^3/uL (0.2-0.8); MONOCYTES % (AUTO) 7 % (2-9); NEUTROPHILS # (AUTO) 12.59 x10^3/uL (1.8-6.8); NEUTROPHILS % (AUTO) 83 % (42-75)
[2018-02-26 06:57] VITALS: BP 146/75
[2018-02-26] MEDS: FLUCONAZOLE 200 MG/100 ML 100 ML IV SCH (07:49)
[2018-02-26] MEDS: FUROSEMIDE 20 MG/2 ML IV SCH ×2 (07:50→16:49)
[2018-02-26] MEDS ORDERED: MAGNESIUM SULFATE PMX 2GM/50ML 50 ML IV ONE (09:30)
[2018-02-26] MEDS: LINEZOLID PMX 600MG/300ML 300 ML IV SCH (13:25)
[2018-02-26 13:57] VITALS: BP 138/76
[2018-02-26] MEDS ORDERED: FAT EMUL IV SCH (17:00)
[2018-02-26] MEDS ORDERED: [UNRECOGNIZED DRUG - OTHER] IV SCH (17:00)
[2018-02-26] MEDS ORDERED: SMOF TPN IV SCH (17:00)
[2018-02-26] MEDS ORDERED: DEXTROSE 70% IV SCH (17:00)
[2018-02-26] MEDS ORDERED: AMINO ACID 10% IV SCH (17:00)
[2018-02-26 19:36] VITALS: BP 114/69
[2018-02-27] VITALS (8 sets, daily range): BP systolic 118–155; BP diastolic 68–83
[2018-02-27] MEDS: INSULIN LISPRO 100 UNITS/ML, PEN SQ-INSULIN SCH ×5 (00:12→23:30)
[2018-02-27] MEDS: LINEZOLID PMX 600MG/300ML 300 ML IV SCH ×2 (00:12→15:15)
[2018-02-27] MEDS: HEPARIN 5,000 UNITS/ML, 1ML SQ SCH ×2 (02:49→09:45)
[2018-02-27] MEDS: METRONIDAZOLE PMX 500MG/100ML 100 ML IV SCH ×2 (04:46→17:39)
[2018-02-27] MEDS: LEVOTHYROXINE 25 MCG TABLET PO SCH (06:01)
[2018-02-27 06:34] LABS: MEAN CORPUSCULAR HEMOGLOBIN 30.4 pg (27.0-34.8); MEAN CORPUSCULAR HGB CONC 33.7 g/dL (32.4-35.8); MEAN CORPUSCULAR VOLUME 90.3 fL (80-100); MEAN PLATELET VOLUME 8.2 fL (7.4-10.4); PLATELET COUNT 435 x10^3/uL (130-400); RED CELL DISTRIBUTION WIDTH 16.5 % (9.6-15.2)
[2018-02-27 06:51] LABS: MD YES
[2018-02-27 06:55] LABS: ANISOCYTOSIS 1+; BAND#(MANUAL) 0.98 x10^3/uL; BANDS%(MANUAL) 6 % (0-7); EOS#(MANUAL) 0.49 x10^3/uL (0.0-0.4); EOS% (MANUAL) 3 % (1-7); LYMPH#(MANUAL) 0.98 x10^3/uL (1-3.4); LYMPHS% (MANUAL) 6 % (22-44); MONOS#(MANUAL) 0.49 x10^3/uL (0.3-2.7); MONOS% (MANUAL) 3 % (2-9); OVALOCYTES 1+; POLYCHROMASIA 1+; SEG#(MANUAL) 13.28 x10^3/uL (1.8-6.8); SEGS% (MANUAL) 81 % (42-75)
[2018-02-27 06:57] LABS: <PLATELET ESTIMATE> INCREASED; <PLT MORPHOLOGY> NORMAL PLT MORPH; TOXIC GRAN 1+
[2018-02-27] MEDS: FUROSEMIDE 20 MG/2 ML IV SCH ×2 (08:01→16:52)
[2018-02-27] MEDS: FLUCONAZOLE 200 MG/100 ML 100 ML IV SCH (08:09)
[2018-02-27 10:41] LABS: ANION GAP 10 mmol/L (5-15); CALCIUM 7.7 mg/dL (8.5-10.1); CHLORIDE 103 mmol/L (98-107); CREATININE 0.72 mg/dL (0.55-1.02)
[2018-02-27] MEDS ORDERED: DEXTROSE 70% IV SCH (17:00)
[2018-02-27] MEDS ORDERED: [UNRECOGNIZED DRUG - OTHER] IV SCH (17:00)
[2018-02-27] MEDS ORDERED: SMOF TPN IV SCH (17:00)
[2018-02-27] MEDS ORDERED: AMINO ACID 10% IV SCH (17:00)
[2018-02-27] MEDS ORDERED: FAT EMUL IV SCH (17:00)
[2018-02-27] MEDS: FILTER, DISP 1.2 MICRON FOR TPN/PVN IV PRN (17:09)
[2018-02-28] VITALS (8 sets, daily range): BP systolic 120–145; BP diastolic 65–78
[2018-02-28] MEDS: METRONIDAZOLE PMX 500MG/100ML 100 ML IV SCH ×3 (01:18→20:56)
[2018-02-28] MEDS: LINEZOLID PMX 600MG/300ML 300 ML IV SCH ×2 (03:29→17:24)
[2018-02-28] MEDS: INSULIN LISPRO 100 UNITS/ML, PEN SQ-INSULIN SCH ×4 (05:31→23:05)
[2018-02-28] MEDS: LEVOTHYROXINE 25 MCG TABLET PO SCH (05:31)
[2018-02-28 06:27] LABS: ALANINE AMINOTRANSFERASE 8 U/L (12-78); ALBUMIN 0.8 g/dL (3.4-5.0); ANION GAP 9 mmol/L (5-15); CALCIUM 7.5 mg/dL (8.5-10.1); CHLORIDE 105 mmol/L (98-107); CREATININE 0.72 mg/dL (0.55-1.02); MEAN CORPUSCULAR HEMOGLOBIN 30.9 pg (27.0-34.8); MEAN CORPUSCULAR HGB CONC 34.3 g/dL (32.4-35.8); MEAN CORPUSCULAR VOLUME 90.1 fL (80-100); MEAN PLATELET VOLUME 7.7 fL (7.4-10.4); PLATELET COUNT 411 x10^3/uL (130-400); RED BLOOD COUNT 2.17 x10^6/uL (3.82-5.3); RED CELL DISTRIBUTION WIDTH 16.6 % (9.6-15.2)
[2018-02-28 06:29] LABS: ALKALINE PHOSPHATASE 367 U/L (45-117); BILIRUBIN,TOTAL 0.3 mg/dL (0.2-1.0)
[2018-02-28 06:59] LABS: BASOPHILS % (AUTO) 0 % (0-1); EOSINOPHILS % (AUTO) 1 % (1-7); LYMPHOCYTES # (AUTO) 1.01 x10^3/uL (1-3.4); LYMPHOCYTES % (AUTO) 6 % (22-44); MD SCAN; MONOCYTES # (AUTO) 0.85 x10^3/uL (0.2-0.8); MONOCYTES % (AUTO) 5 % (2-9); NEUTROPHILS # (AUTO) 15.02 x10^3/uL (1.8-6.8); NEUTROPHILS % (AUTO) 89 % (42-75)
[2018-02-28] MEDS ORDERED: MAGNESIUM SULFATE PMX 2GM/50ML 50 ML IV ONE (09:00)
[2018-02-28] MEDS: FUROSEMIDE 20 MG/2 ML IV SCH ×2 (11:32→17:23)
[2018-02-28] MEDS: FLUCONAZOLE 200 MG/100 ML 100 ML IV SCH (13:01)
[2018-02-28 15:58] LABS: OCCULT BLOOD POSITIVE (NEGATIVE)
[2018-02-28 16:36] LABS: CLOSTRIDIUM DIFFICILE ANTIGEN POSITIVE; CLOSTRIDIUM DIFFICILE TOXIN NEGATIVE (Negative)
[2018-02-28] MEDS ORDERED: AMINO ACID 10% IV SCH (17:00)
[2018-02-28] MEDS ORDERED: DEXTROSE 70% IV SCH (17:00)
[2018-02-28] MEDS ORDERED: SMOF TPN IV SCH (17:00)
[2018-02-28] MEDS ORDERED: [UNRECOGNIZED DRUG - OTHER] IV SCH (17:00)
[2018-02-28] MEDS ORDERED: FAT EMUL IV SCH (17:00)
[2018-02-28] MEDS: FILTER, DISP 1.2 MICRON FOR TPN/PVN IV PRN (17:24)
[2018-02-28] MEDS ORDERED: PANTOPRAZOLE 40 MG IV IVPush SCH (18:30)
[2018-03-01] VITALS (11 sets, daily range): BP systolic 92–141; BP diastolic 54–67
[2018-03-01] MEDS: METRONIDAZOLE PMX 500MG/100ML 100 ML IV SCH ×3 (03:31→20:00)
[2018-03-01] MEDS: LEVOTHYROXINE 25 MCG TABLET PO SCH (05:29)
[2018-03-01] MEDS: INSULIN LISPRO 100 UNITS/ML, PEN SQ-INSULIN SCH ×4 (05:29→23:37)
[2018-03-01] MEDS: LINEZOLID PMX 600MG/300ML 300 ML IV SCH ×2 (05:30→18:21)
[2018-03-01 06:21] LABS: MEAN CORPUSCULAR HEMOGLOBIN 30.7 pg (27.0-34.8); MEAN CORPUSCULAR HGB CONC 33.7 g/dL (32.4-35.8); MEAN CORPUSCULAR VOLUME 91.1 fL (80-100); MEAN PLATELET VOLUME 7.7 fL (7.4-10.4); PLATELET COUNT 352 x10^3/uL (130-400); RED BLOOD COUNT 2.13 x10^6/uL (3.82-5.3); RED CELL DISTRIBUTION WIDTH 15.9 % (9.6-15.2)
[2018-03-01 06:29] LABS: ANION GAP 9 mmol/L (5-15); CHLORIDE 107 mmol/L (98-107)
[2018-03-01 06:31] LABS: CREATININE 0.65 mg/dL (0.55-1.02)
[2018-03-01 06:43] LABS: MD YES
[2018-03-01 06:46] LABS: ANISOCYTOSIS 1+; BAND#(MANUAL) 1.77 x10^3/uL; BANDS%(MANUAL) 10 % (0-7); EOS#(MANUAL) 0.18 x10^3/uL (0.0-0.4); EOS% (MANUAL) 1 % (1-7); LYMPH#(MANUAL) 0.18 x10^3/uL (1-3.4); LYMPHS% (MANUAL) 1 % (22-44); MONOS#(MANUAL) 0.18 x10^3/uL (0.3-2.7); MONOS% (MANUAL) 1 % (2-9); SEGS% (MANUAL) 87 % (42-75)
[2018-03-01 06:47] LABS: <PLATELET ESTIMATE> ADEQUATE; <PLT MORPHOLOGY> NORMAL PLT MORPH; HYPOCHROMIA 1+; POLYCHROMASIA 1+; TOXIC GRAN 1+
[2018-03-01] MEDS: SODIUM CHLORIDE 0.9% 1,000 ML IV SCH (10:29)
[2018-03-01] MEDS: FUROSEMIDE 20 MG/2 ML IV SCH ×2 (10:29→17:30)
[2018-03-01] MEDS ORDERED: PANTOPRAZOLE 80 MG in SODIUM CHLORIDE 0.9% 50 ML IV ONE (12:30)
[2018-03-01] MEDS: FLUCONAZOLE 200 MG/100 ML 100 ML IV SCH (14:35)
[2018-03-01] MEDS: PANTOPRAZOLE 80 MG in SODIUM CHLORIDE 0.9% 100 ML IV SCH (15:04)
[2018-03-01] MEDS ORDERED: SMOF TPN IV SCH (17:00)
[2018-03-01] MEDS ORDERED: [UNRECOGNIZED DRUG - OTHER] IV SCH (17:00)
[2018-03-01] MEDS ORDERED: DEXTROSE 70% IV SCH (17:00)
[2018-03-01] MEDS ORDERED: FAT EMUL IV SCH (17:00)
[2018-03-01] MEDS ORDERED: AMINO ACID 10% IV SCH (17:00)
[2018-03-01] MEDS: FILTER, DISP 1.2 MICRON FOR TPN/PVN IV PRN (17:28)
[2018-03-02] MEDS: SODIUM CHLORIDE 0.9% 1,000 ML IV SCH ×2 (00:33→03:35)
[2018-03-02] MEDS: PANTOPRAZOLE 80 MG in SODIUM CHLORIDE 0.9% 100 ML IV SCH ×3 (00:33→20:11)
[2018-03-02 01:45] VITALS: BP 133/64
[2018-03-02] MEDS: METRONIDAZOLE PMX 500MG/100ML 100 ML IV SCH ×3 (03:34→20:11)
[2018-03-02 04:00] VITALS: BP 130/62
[2018-03-02 04:28] LABS: ALBUMIN 0.8 g/dL (3.4-5.0); ANION GAP 5 mmol/L (5-15); CALCIUM 7.6 mg/dL (8.5-10.1); CHLORIDE 112 mmol/L (98-107)
[2018-03-02 04:34] LABS: ALANINE AMINOTRANSFERASE 8 U/L (12-78); ALKALINE PHOSPHATASE 352 U/L (45-117); BILIRUBIN,TOTAL 1.1 mg/dL (0.2-1.0); CREATININE 0.68 mg/dL (0.55-1.02); PREALBUMIN 8.5 mg/dL (20.0-40.0); TOTAL PROTEIN 5.6 g/dL (6.4-8.2)
[2018-03-02] MEDS: LINEZOLID PMX 600MG/300ML 300 ML IV SCH ×2 (05:20→17:48)
[2018-03-02] MEDS: INSULIN LISPRO 100 UNITS/ML, PEN SQ-INSULIN SCH ×4 (05:21→23:29)
[2018-03-02] MEDS: FUROSEMIDE 20 MG/2 ML IV SCH ×2 (08:04→17:48)
[2018-03-02] MEDS: LEVOTHYROXINE 25 MCG TABLET PO SCH (09:00)
[2018-03-02] MEDS: MORPHINE SULFATE 4 MG/ML, 1ML IVPush PRN ×2 (09:54→23:28)
[2018-03-02] MEDS ORDERED: FENTANYL PF 100 MCG/2ML ONE ×2 (10:00→13:10)
[2018-03-02] MEDS ORDERED: MIDAZOLAM 1 MG/ML, 5ML ONE ×2 (10:00→13:10)
[2018-03-02 10:19] LABS: MEAN CORPUSCULAR HEMOGLOBIN 31.6 pg (27.0-34.8); MEAN CORPUSCULAR HGB CONC 34.8 g/dL (32.4-35.8); MEAN PLATELET VOLUME 7.8 fL (7.4-10.4); PLATELET COUNT 263 x10^3/uL (130-400); RED BLOOD COUNT 2.86 x10^6/uL (3.82-5.3); RED CELL DISTRIBUTION WIDTH 15.1 % (9.6-15.2)
[2018-03-02] MEDS ORDERED: DIPHENHYDRAMINE 50 MG/ML, 1ML ONE (10:34)
[2018-03-02 10:35] LABS: MD YES
[2018-03-02 10:37] LABS: ANISOCYTOSIS 1+; BAND#(MANUAL) 1.39 x10^3/uL; BANDS%(MANUAL) 8 % (0-7); EOS#(MANUAL) 0.17 x10^3/uL (0.0-0.4); EOS% (MANUAL) 1 % (1-7); LYMPHS% (MANUAL) 4 % (22-44); MONOS#(MANUAL) 0.52 x10^3/uL (0.3-2.7); MONOS% (MANUAL) 3 % (2-9); MYELOCYTES# (MANUAL) 0.17 x10^3/uL (0-0); MYELOCYTES% (MANUAL) 1 % (0-0); POLYCHROMASIA 1+; SEG#(MANUAL) 14.44 x10^3/uL (1.8-6.8); SEGS% (MANUAL) 83 % (42-75)
[2018-03-02 10:38] LABS: <PLATELET ESTIMATE> ADEQUATE; <PLT MORPHOLOGY> NORMAL PLT MORPH; TOXIC GRAN 1+
[2018-03-02] MEDS ORDERED: LIDOCAINE-MPF 2%, 2ML ONE (12:13)
[2018-03-02] MEDS ORDERED: FLUMAZENIL 0.1 MG/1 ML, 5ML ONE (13:10)
[2018-03-02] MEDS ORDERED: NALOXONE 1 MG/ML, 2ML ONE (13:10)
[2018-03-02] MEDS ORDERED: VISIPAQUE 320 MG/ML, 150ML BOTTLE ONE (15:02)
[2018-03-02] MEDS ORDERED: VISIPAQUE 320MG/ML, 50ML BOTTLE ONE (15:02)
[2018-03-02] MEDS: FLUCONAZOLE 200 MG/100 ML 100 ML IV SCH (15:02)
[2018-03-02] MEDS ORDERED: FAT EMUL IV SCH ×2 (17:00)
[2018-03-02] MEDS ORDERED: AMINO ACID 10% IV SCH ×2 (17:00)
[2018-03-02] MEDS ORDERED: [UNRECOGNIZED DRUG - OTHER] IV SCH (17:00)
[2018-03-02] MEDS ORDERED: DEXTROSE 70% IV SCH ×2 (17:00)
[2018-03-02] MEDS ORDERED: [UNRECOGNIZED DRUG - OTHER] IV SCH (17:00)
[2018-03-02] MEDS ORDERED: SMOF TPN IV SCH ×2 (17:00)
[2018-03-02] MEDS: FILTER, DISP 1.2 MICRON FOR TPN/PVN IV PRN (17:48)
[2018-03-03] MEDS: SODIUM CHLORIDE 0.9% 1,000 ML IV SCH (02:49)
[2018-03-03 04:00] VITALS: BP 122/55
[2018-03-03 04:26] LABS: ALBUMIN 0.8 g/dL (3.4-5.0); ANION GAP 8 mmol/L (5-15); CALCIUM 7.6 mg/dL (8.5-10.1); CHLORIDE 113 mmol/L (98-107)
[2018-03-03] MEDS: METRONIDAZOLE PMX 500MG/100ML 100 ML IV SCH ×3 (04:27→20:41)
[2018-03-03 04:30] LABS: ALANINE AMINOTRANSFERASE 9 U/L (12-78); ALKALINE PHOSPHATASE 315 U/L (45-117); BILIRUBIN,TOTAL 0.4 mg/dL (0.2-1.0); CREATININE 0.66 mg/dL (0.55-1.02); TOTAL PROTEIN 5.5 g/dL (6.4-8.2)
[2018-03-03] MEDS: INSULIN LISPRO 100 UNITS/ML, PEN SQ-INSULIN SCH ×4 (04:30→23:47)
[2018-03-03 04:32] LABS: MEAN CORPUSCULAR HGB CONC 33.3 g/dL (32.4-35.8); MEAN CORPUSCULAR VOLUME 90.2 fL (80-100); MEAN PLATELET VOLUME 7.7 fL (7.4-10.4); PLATELET COUNT 247 x10^3/uL (130-400); RED BLOOD COUNT 2.58 x10^6/uL (3.82-5.3); RED CELL DISTRIBUTION WIDTH 14.9 % (9.6-15.2)
[2018-03-03 05:53] LABS: MD YES
[2018-03-03 05:55] LABS: ANISOCYTOSIS 1+; BAND#(MANUAL) 0.91 x10^3/uL; BANDS%(MANUAL) 6 % (0-7); EOS#(MANUAL) 0.15 x10^3/uL (0.0-0.4); EOS% (MANUAL) 1 % (1-7); LYMPH#(MANUAL) 0.61 x10^3/uL (1-3.4); LYMPHS% (MANUAL) 4 % (22-44); MONOS#(MANUAL) 0.76 x10^3/uL (0.3-2.7); MONOS% (MANUAL) 5 % (2-9); NRBC % (MANUAL) 1 % (0-1); SEG#(MANUAL) 12.77 x10^3/uL (1.8-6.8); SEGS% (MANUAL) 84 % (42-75)
[2018-03-03 05:56] LABS: <PLATELET ESTIMATE> ADEQUATE; <PLT MORPHOLOGY> NORMAL PLT MORPH
[2018-03-03] MEDS: LINEZOLID PMX 600MG/300ML 300 ML IV SCH ×2 (05:57→17:17)
[2018-03-03] MEDS: LEVOTHYROXINE 25 MCG TABLET PO SCH (06:00)
[2018-03-03] MEDS: FUROSEMIDE 20 MG/2 ML IV SCH ×2 (07:34→16:28)
[2018-03-03] MEDS: PANTOPRAZOLE 80 MG in SODIUM CHLORIDE 0.9% 100 ML IV SCH ×3 (10:03→20:40)
[2018-03-03] MEDS ORDERED: MIDAZOLAM 1 MG/ML, 5ML ONE (12:00)
[2018-03-03] MEDS ORDERED: PROPOFOL 10 MG/ML, 100ML IV ONE (12:00)
[2018-03-03] MEDS ORDERED: SUCCINYLCHOLINE 20 MG/ML, 10ML ONE (12:00)
[2018-03-03] MEDS: FLUCONAZOLE 200 MG/100 ML 100 ML IV SCH (13:28)
[2018-03-03] MEDS: LEVOTHYROXINE 100 MCG INJ IVPush SCH (14:53)
[2018-03-03] MEDS ORDERED: DEXTROSE 70% IV SCH (17:00)
[2018-03-03] MEDS ORDERED: FAT EMUL IV SCH (17:00)
[2018-03-03] MEDS ORDERED: [UNRECOGNIZED DRUG - OTHER] IV SCH (17:00)
[2018-03-03] MEDS ORDERED: AMINO ACID 10% IV SCH (17:00)
[2018-03-03] MEDS ORDERED: SMOF TPN IV SCH (17:00)
[2018-03-03] MEDS: FILTER, DISP 1.2 MICRON FOR TPN/PVN IV PRN (17:52)
[2018-03-03 19:41] VITALS: BP 136/84
[2018-03-03 22:35] VITALS: BP 123/71
[2018-03-04 01:27] VITALS: BP 124/76
[2018-03-04] MEDS: ONDANSETRON 2MG/ML, 2ML IVPush PRN (01:50)
[2018-03-04] MEDS: MORPHINE SULFATE 4 MG/ML, 1ML IVPush PRN (01:50)
[2018-03-04] MEDS: METRONIDAZOLE PMX 500MG/100ML 100 ML IV SCH ×3 (05:23→21:23)
[2018-03-04 05:49] LABS: ANION GAP 5 mmol/L (5-15); CALCIUM 8.1 mg/dL (8.5-10.1); CHLORIDE 113 mmol/L (98-107); CREATININE 0.61 mg/dL (0.55-1.02)
[2018-03-04 06:11] LABS: MEAN CORPUSCULAR HEMOGLOBIN 30.9 pg (27.0-34.8); MEAN CORPUSCULAR HGB CONC 33.7 g/dL (32.4-35.8); MEAN CORPUSCULAR VOLUME 91.7 fL (80-100); MEAN PLATELET VOLUME 7.9 fL (7.4-10.4); PLATELET COUNT 255 x10^3/uL (130-400); RED BLOOD COUNT 2.42 x10^6/uL (3.82-5.3); RED CELL DISTRIBUTION WIDTH 15.7 % (9.6-15.2)
[2018-03-04] MEDS: INSULIN LISPRO 100 UNITS/ML, PEN SQ-INSULIN SCH ×4 (06:21→21:22)
[2018-03-04] MEDS: LINEZOLID PMX 600MG/300ML 300 ML IV SCH ×2 (06:22→17:44)
[2018-03-04 06:35] LABS: BASOPHILS # (AUTO) 0.03 x10^3/uL (0-0.1); BASOPHILS % (AUTO) 0 % (0-1); EOSINOPHILS # (AUTO) 0.13 x10^3/uL (0-0.4); EOSINOPHILS % (AUTO) 1 % (1-7); LYMPHOCYTES # (AUTO) 0.95 x10^3/uL (1-3.4); LYMPHOCYTES % (AUTO) 7 % (22-44); MD SCAN; MONOCYTES # (AUTO) 0.87 x10^3/uL (0.2-0.8); MONOCYTES % (AUTO) 6 % (2-9); NEUTROPHILS # (AUTO) 12.14 x10^3/uL (1.8-6.8); NEUTROPHILS % (AUTO) 86 % (42-75)
[2018-03-04] MEDS: PANTOPRAZOLE 80 MG in SODIUM CHLORIDE 0.9% 100 ML IV SCH ×2 (06:44→17:43)
[2018-03-04 07:55] VITALS: BP 108/68
[2018-03-04] MEDS: LEVOTHYROXINE 100 MCG INJ IVPush SCH (08:50)
[2018-03-04] MEDS: FUROSEMIDE 20 MG/2 ML IV SCH ×2 (08:50→17:00)
[2018-03-04] MEDS ORDERED: SUCCINYLCHOLINE 20 MG/ML, 10ML IVPush ONE (13:30)
[2018-03-04] MEDS ORDERED: MIDAZOLAM 1 MG/ML, 2ML IVPush ONE (13:30)
[2018-03-04] MEDS ORDERED: SODIUM CHLORIDE 0.9%, 500ML IVBOLUS ONE (13:30)
[2018-03-04] MEDS: FLUCONAZOLE 200 MG/100 ML 100 ML IV SCH (13:38)
[2018-03-04] MEDS ORDERED: SENNA/DOCUSATE TABLET NG PRN (16:30)
[2018-03-04] MEDS ORDERED: BISACODYL 10 MG SUPP PR PRN (16:30)
[2018-03-04] MEDS ORDERED: LACTULOSE 20 GM/30 ML UDC NG PRN (16:30)
[2018-03-04] MEDS ORDERED: FENTANYL PF 100 MCG/2ML IVPush PRN (16:30)
[2018-03-04] MEDS ORDERED: LIDOCAINE-MPF 1%, 2ML ENDO PRN (16:30)
[2018-03-04] MEDS ORDERED: PHARMACY MAY ADJ FOR RENAL FX MC SCH (16:30)
[2018-03-04] MEDS ORDERED: SENNOSIDES 8.8 MG/5 ML ORAL SOL NG PRN (16:30)
[2018-03-04] MEDS ORDERED: AMINO ACID 10% IV SCH (17:00)
[2018-03-04] MEDS ORDERED: SMOF TPN IV SCH (17:00)
[2018-03-04] MEDS ORDERED: [UNRECOGNIZED DRUG - OTHER] IV SCH (17:00)
[2018-03-04] MEDS ORDERED: DEXTROSE 70% IV SCH (17:00)
[2018-03-04] MEDS ORDERED: FAT EMUL IV SCH (17:00)
[2018-03-04] MEDS: ALBUTEROL/IPRATROPIUM 2.5MG/0.5MG, 3 ML INLINE SCH ×2 (19:13→22:15)
[2018-03-05] MEDS: ALBUTEROL/IPRATROPIUM 2.5MG/0.5MG, 3 ML INLINE SCH ×6 (02:22→22:20)
[2018-03-05] MEDS: PROPOFOL 100 ML IV PRN ×3 (04:25→20:00)
[2018-03-05] MEDS: PANTOPRAZOLE 80 MG in SODIUM CHLORIDE 0.9% 100 ML IV SCH ×3 (04:26→23:04)
[2018-03-05 04:58] LABS: MEAN CORPUSCULAR HEMOGLOBIN 31.2 pg (27.0-34.8); MEAN CORPUSCULAR HGB CONC 34.4 g/dL (32.4-35.8); MEAN CORPUSCULAR VOLUME 90.7 fL (80-100); MEAN PLATELET VOLUME 8.4 fL (7.4-10.4); PLATELET COUNT 249 x10^3/uL (130-400); RED CELL DISTRIBUTION WIDTH 15.5 % (9.6-15.2)
[2018-03-05] MEDS: INSULIN LISPRO 100 UNITS/ML, PEN SQ-INSULIN SCH ×4 (05:00→23:00)
[2018-03-05 05:03] LABS: ANION GAP 10 mmol/L (5-15); CALCIUM 8.1 mg/dL (8.5-10.1); CHLORIDE 111 mmol/L (98-107); CREATININE 0.69 mg/dL (0.55-1.02)
[2018-03-05] MEDS: METRONIDAZOLE PMX 500MG/100ML 100 ML IV SCH ×3 (05:38→20:18)
[2018-03-05 06:09] LABS: BASOPHILS # (AUTO) 0.03 x10^3/uL (0-0.1); BASOPHILS % (AUTO) 0 % (0-1); EOSINOPHILS # (AUTO) 0.17 x10^3/uL (0-0.4); EOSINOPHILS % (AUTO) 1 % (1-7); LYMPHOCYTES # (AUTO) 0.83 x10^3/uL (1-3.4); LYMPHOCYTES % (AUTO) 7 % (22-44); MD SCAN; MONOCYTES # (AUTO) 0.46 x10^3/uL (0.2-0.8); MONOCYTES % (AUTO) 4 % (2-9); NEUTROPHILS # (AUTO) 10.18 x10^3/uL (1.8-6.8); NEUTROPHILS % (AUTO) 87 % (42-75)
[2018-03-05] MEDS: LINEZOLID PMX 600MG/300ML 300 ML IV SCH ×2 (06:29→18:36)
[2018-03-05 09:09] VITALS: BP 136/62
[2018-03-05 09:24] VITALS: BP 126/54
[2018-03-05] MEDS: FUROSEMIDE 20 MG/2 ML IV SCH ×2 (09:54→17:23)
[2018-03-05] MEDS: ALBUMIN HUMAN 25% 100 ML IV SCH ×2 (09:55→17:22)
[2018-03-05] MEDS: LEVOTHYROXINE 100 MCG INJ IVPush SCH (09:56)
[2018-03-05] MEDS: METOCLOPRAMIDE 5 MG/ML, 2ML IV SCH ×3 (09:56→21:24)
[2018-03-05 10:00] VITALS: BP 135/57
[2018-03-05] MEDS ORDERED: INSTRUCTION SEE COMMENTS XX PRN (10:00)
[2018-03-05 10:30] VITALS: BP 140/65
[2018-03-05 11:00] VITALS: BP 135/63
[2018-03-05 11:41] VITALS: BP 123/59
[2018-03-05] MEDS: FLUCONAZOLE 200 MG/100 ML 100 ML IV SCH (14:37)
[2018-03-05] MEDS ORDERED: FAT EMUL IV SCH (17:00)
[2018-03-05] MEDS ORDERED: AMINO ACID 10% IV SCH (17:00)
[2018-03-05] MEDS ORDERED: [UNRECOGNIZED DRUG - OTHER] IV SCH (17:00)
[2018-03-05] MEDS ORDERED: DEXTROSE 70% IV SCH (17:00)
[2018-03-05] MEDS ORDERED: SMOF TPN IV SCH (17:00)
[2018-03-05] MEDS ORDERED: FENTANYL PF 100 MCG/2ML ONE (23:22)
[2018-03-05] MEDS: FENTANYL PF 100 MCG/2ML IVPush PRN (23:24)
[2018-03-06] MEDS: ALBUMIN HUMAN 25% 100 ML IV SCH ×3 (00:48→16:32)
[2018-03-06] MEDS: FUROSEMIDE 20 MG/2 ML IV SCH ×3 (00:48→16:42)
[2018-03-06] MEDS: ALBUTEROL/IPRATROPIUM 2.5MG/0.5MG, 3 ML INLINE SCH ×6 (02:16→23:00)
[2018-03-06] MEDS: FENTANYL PF 100 MCG/2ML IVPush PRN (02:34)
[2018-03-06] MEDS: METOCLOPRAMIDE 5 MG/ML, 2ML IV SCH ×4 (04:00→21:42)
[2018-03-06 04:14] VITALS: BP 137/66
[2018-03-06 04:20] LABS: BASOPHILS # (AUTO) 0.06 x10^3/uL (0-0.1); BASOPHILS % (AUTO) 1 % (0-1); EOSINOPHILS # (AUTO) 0.21 x10^3/uL (0-0.4); EOSINOPHILS % (AUTO) 2 % (1-7); LYMPHOCYTES # (AUTO) 0.98 x10^3/uL (1-3.4); LYMPHOCYTES % (AUTO) 9 % (22-44); MD NO; MEAN CORPUSCULAR HGB CONC 34.7 g/dL (32.4-35.8); MEAN CORPUSCULAR VOLUME 92.2 fL (80-100); MEAN PLATELET VOLUME 8.4 fL (7.4-10.4); MONOCYTES # (AUTO) 0.73 x10^3/uL (0.2-0.8); MONOCYTES % (AUTO) 7 % (2-9); NEUTROPHILS % (AUTO) 81 % (42-75); PLATELET COUNT 248 x10^3/uL (130-400); RED BLOOD COUNT 2.34 x10^6/uL (3.82-5.3); RED CELL DISTRIBUTION WIDTH 14.9 % (9.6-15.2)
[2018-03-06 04:21] LABS: ANION GAP 10 mmol/L (5-15); CALCIUM 8.4 mg/dL (8.5-10.1); CHLORIDE 109 mmol/L (98-107); CREATININE 0.71 mg/dL (0.55-1.02)
[2018-03-06] MEDS: METRONIDAZOLE PMX 500MG/100ML 100 ML IV SCH ×3 (04:56→20:24)
[2018-03-06] MEDS: INSULIN LISPRO 100 UNITS/ML, PEN SQ-INSULIN SCH ×4 (05:00→23:00)
[2018-03-06] MEDS: PROPOFOL 100 ML IV PRN ×3 (06:02→23:01)
[2018-03-06] MEDS: LINEZOLID PMX 600MG/300ML 300 ML IV SCH ×2 (06:03→18:01)
[2018-03-06] MEDS: LEVOTHYROXINE 100 MCG INJ IVPush SCH (09:04)
[2018-03-06] MEDS: FLUCONAZOLE 200 MG/100 ML 100 ML IV SCH (11:11)
[2018-03-06] MEDS: PANTOPRAZOLE 40 MG IV IVPush SCH (13:34)
[2018-03-06] MEDS ORDERED: SMOF TPN IV SCH ×3 (17:00)
[2018-03-06] MEDS ORDERED: AMINO ACID 10% IV SCH ×3 (17:00)
[2018-03-06] MEDS ORDERED: [UNRECOGNIZED DRUG - OTHER] IV SCH ×3 (17:00)
[2018-03-06] MEDS ORDERED: DEXTROSE 70% IV SCH ×3 (17:00)
[2018-03-06] MEDS ORDERED: FAT EMUL IV SCH ×3 (17:00)
[2018-03-06] MEDS ORDERED: METOLAZONE 5 MG TABLET ONE (17:58)
[2018-03-06] MEDS: METOLAZONE 2.5 MG TABLET PO SCH (18:00)
[2018-03-07] MEDS: PANTOPRAZOLE 40 MG IV IVPush SCH ×2 (00:32→12:05)
[2018-03-07] MEDS: FUROSEMIDE 20 MG/2 ML IV SCH ×3 (00:57→17:50)
[2018-03-07] MEDS: ALBUMIN HUMAN 25% 100 ML IV SCH ×3 (00:57→17:50)
[2018-03-07] MEDS: ALBUTEROL/IPRATROPIUM 2.5MG/0.5MG, 3 ML INLINE SCH ×6 (03:00→23:00)
[2018-03-07] MEDS: METOCLOPRAMIDE 5 MG/ML, 2ML IV SCH ×4 (03:48→22:10)
[2018-03-07 04:08] LABS: MEAN CORPUSCULAR HEMOGLOBIN 31.3 pg (27.0-34.8); MEAN CORPUSCULAR HGB CONC 34.2 g/dL (32.4-35.8); MEAN CORPUSCULAR VOLUME 91.5 fL (80-100); MEAN PLATELET VOLUME 8.4 fL (7.4-10.4); PLATELET COUNT 244 x10^3/uL (130-400); RED BLOOD COUNT 2.26 x10^6/uL (3.82-5.3); RED CELL DISTRIBUTION WIDTH 15.3 % (9.6-15.2)
[2018-03-07 04:11] LABS: ANION GAP 11 mmol/L (5-15); CALCIUM 8.5 mg/dL (8.5-10.1); CHLORIDE 106 mmol/L (98-107); CREATININE 0.63 mg/dL (0.55-1.02); TRIGLYCERIDES 107 mg/dL (50-200)
[2018-03-07 04:14] VITALS: BP 135/70
[2018-03-07 04:27] LABS: MD YES
[2018-03-07 04:28] LABS: BAND#(MANUAL) 0.28 x10^3/uL; BANDS%(MANUAL) 3 % (0-7); EOS% (MANUAL) 2 % (1-7); LYMPH#(MANUAL) 1.03 x10^3/uL (1-3.4); LYMPHS% (MANUAL) 11 % (22-44); MONOS#(MANUAL) 0.47 x10^3/uL (0.3-2.7); MONOS% (MANUAL) 5 % (2-9); SEG#(MANUAL) 7.43 x10^3/uL (1.8-6.8); SEGS% (MANUAL) 79 % (42-75)
[2018-03-07 04:29] LABS: ANISOCYTOSIS 1+; EOS#(MANUAL) 0.19 x10^3/uL (0.0-0.4); MICROCYTOSIS 1+; POLYCHROMASIA 1+
[2018-03-07 04:30] LABS: <PLATELET ESTIMATE> ADEQUATE; <PLT MORPHOLOGY> NORMAL PLT MORPH; TOXIC GRAN 1+
[2018-03-07] MEDS: METRONIDAZOLE PMX 500MG/100ML 100 ML IV SCH ×3 (04:45→20:17)
[2018-03-07] MEDS: INSULIN LISPRO 100 UNITS/ML, PEN SQ-INSULIN SCH ×4 (05:00→23:00)
[2018-03-07] MEDS: LINEZOLID PMX 600MG/300ML 300 ML IV SCH ×2 (06:09→18:04)
[2018-03-07] MEDS: METOLAZONE 2.5 MG TABLET PO SCH ×2 (07:30→17:00)
[2018-03-07] MEDS: FENTANYL PF 100 MCG/2ML IVPush PRN (08:52)
[2018-03-07] MEDS: LEVOTHYROXINE 100 MCG INJ IVPush SCH (08:57)
[2018-03-07] MEDS ORDERED: [UNRECOGNIZED DRUG - OTHER] IV SCH ×2 (10:30→17:00)
[2018-03-07] MEDS ORDERED: AMINO ACID 10% IV SCH ×2 (10:30→17:00)
[2018-03-07] MEDS ORDERED: SMOF TPN IV SCH ×2 (10:30→17:00)
[2018-03-07] MEDS ORDERED: FAT EMUL IV SCH ×2 (10:30→17:00)
[2018-03-07] MEDS ORDERED: DEXTROSE 70% IV SCH ×2 (10:30→17:00)
[2018-03-07] MEDS: FLUCONAZOLE 200 MG/100 ML 100 ML IV SCH (12:05)
[2018-03-07] MEDS: FILTER, DISP 1.2 MICRON FOR TPN/PVN IV PRN (17:49)
[2018-03-08] MEDS: PANTOPRAZOLE 40 MG IV IVPush SCH ×2 (00:30→11:45)
[2018-03-08] MEDS: PROPOFOL 100 ML IV PRN ×2 (00:34→06:35)
[2018-03-08] MEDS: ALBUMIN HUMAN 25% 100 ML IV SCH ×3 (00:50→17:18)
[2018-03-08] MEDS: FUROSEMIDE 20 MG/2 ML IV SCH ×3 (00:51→17:14)
[2018-03-08] MEDS: ALBUTEROL/IPRATROPIUM 2.5MG/0.5MG, 3 ML INLINE SCH ×3 (02:41→10:20)
[2018-03-08] MEDS: METOCLOPRAMIDE 5 MG/ML, 2ML IV SCH ×4 (03:49→22:39)
[2018-03-08 04:06] VITALS: BP 137/69
[2018-03-08 04:45] LABS: MEAN CORPUSCULAR HEMOGLOBIN 32.2 pg (27.0-34.8); MEAN CORPUSCULAR HGB CONC 34.5 g/dL (32.4-35.8); MEAN CORPUSCULAR VOLUME 93.3 fL (80-100); MEAN PLATELET VOLUME 8.6 fL (7.4-10.4); PLATELET COUNT 262 x10^3/uL (130-400); RED BLOOD COUNT 2.13 x10^6/uL (3.82-5.3); RED CELL DISTRIBUTION WIDTH 15.4 % (9.6-15.2)
[2018-03-08 04:51] LABS: CALCIUM 8.6 mg/dL (8.5-10.1); CHLORIDE 105 mmol/L (98-107)
[2018-03-08 04:54] LABS: ANION GAP 11 mmol/L (5-15); CREATININE 0.67 mg/dL (0.55-1.02)
[2018-03-08] MEDS: METRONIDAZOLE PMX 500MG/100ML 100 ML IV SCH ×3 (04:56→20:30)
[2018-03-08] MEDS: INSULIN LISPRO 100 UNITS/ML, PEN SQ-INSULIN SCH ×4 (05:00→22:39)
[2018-03-08 05:38] LABS: BASOPHILS # (AUTO) 0.01 x10^3/uL (0-0.1); BASOPHILS % (AUTO) 0 % (0-1); EOSINOPHILS # (AUTO) 0.24 x10^3/uL (0-0.4); EOSINOPHILS % (AUTO) 2 % (1-7); LYMPHOCYTES # (AUTO) 0.92 x10^3/uL (1-3.4); LYMPHOCYTES % (AUTO) 9 % (22-44); MD SCAN; MONOCYTES # (AUTO) 0.56 x10^3/uL (0.2-0.8); MONOCYTES % (AUTO) 6 % (2-9); NEUTROPHILS # (AUTO) 8.34 x10^3/uL (1.8-6.8); NEUTROPHILS % (AUTO) 83 % (42-75)
[2018-03-08 05:51] VITALS: BP 132/63
[2018-03-08 06:02] VITALS: BP 131/63
[2018-03-08 06:04] VITALS: BP 131/63
[2018-03-08] MEDS: LINEZOLID PMX 600MG/300ML 300 ML IV SCH ×2 (06:11→17:26)
[2018-03-08 08:19] VITALS: BP 137/69
[2018-03-08] MEDS: LEVOTHYROXINE 100 MCG INJ IVPush SCH (11:00)
[2018-03-08] MEDS: FLUCONAZOLE 200 MG/100 ML 100 ML IV SCH (11:24)
[2018-03-08] MEDS ORDERED: hydrALAzine 20 MG/ML, 1ML IV PRN (16:30)
[2018-03-08] MEDS ORDERED: SMOF TPN IV SCH (17:00)
[2018-03-08] MEDS ORDERED: [UNRECOGNIZED DRUG - OTHER] IV SCH (17:00)
[2018-03-08] MEDS ORDERED: DEXTROSE 70% IV SCH (17:00)
[2018-03-08] MEDS ORDERED: AMINO ACID 10% IV SCH (17:00)
[2018-03-08] MEDS ORDERED: FAT EMUL IV SCH (17:00)
[2018-03-08] MEDS: FILTER, DISP 1.2 MICRON FOR TPN/PVN IV PRN (17:18)
[2018-03-08] MEDS: ONDANSETRON 2MG/ML, 2ML IVPush PRN (21:02)
[2018-03-09] MEDS: PANTOPRAZOLE 40 MG IV IVPush SCH ×2 (00:43→12:25)
[2018-03-09] MEDS: ALBUMIN HUMAN 25% 100 ML IV SCH ×2 (00:45→10:31)
[2018-03-09] MEDS: FUROSEMIDE 20 MG/2 ML IV SCH (01:58)
[2018-03-09] MEDS: METRONIDAZOLE PMX 500MG/100ML 100 ML IV SCH ×2 (04:40→13:38)
[2018-03-09] MEDS: METOCLOPRAMIDE 5 MG/ML, 2ML IV SCH ×2 (04:40→10:31)
[2018-03-09] MEDS: INSULIN LISPRO 100 UNITS/ML, PEN SQ-INSULIN SCH ×2 (04:40→10:36)
[2018-03-09 05:47] LABS: BASOPHILS # (AUTO) 0.03 x10^3/uL (0-0.1); BASOPHILS % (AUTO) 0 % (0-1); EOSINOPHILS # (AUTO) 0.18 x10^3/uL (0-0.4); EOSINOPHILS % (AUTO) 2 % (1-7); LYMPHOCYTES # (AUTO) 0.72 x10^3/uL (1-3.4); LYMPHOCYTES % (AUTO) 7 % (22-44); MD NO; MEAN CORPUSCULAR HEMOGLOBIN 31.5 pg (27.0-34.8); MEAN CORPUSCULAR HGB CONC 33.6 g/dL (32.4-35.8); MEAN CORPUSCULAR VOLUME 93.8 fL (80-100); MEAN PLATELET VOLUME 8.5 fL (7.4-10.4); MONOCYTES # (AUTO) 0.76 x10^3/uL (0.2-0.8); MONOCYTES % (AUTO) 7 % (2-9); NEUTROPHILS # (AUTO) 9.08 x10^3/uL (1.8-6.8); NEUTROPHILS % (AUTO) 84 % (42-75); PLATELET COUNT 284 x10^3/uL (130-400); RED BLOOD COUNT 2.46 x10^6/uL (3.82-5.3); RED CELL DISTRIBUTION WIDTH 15.5 % (9.6-15.2)
[2018-03-09 05:51] LABS: ALBUMIN 2.7 g/dL (3.4-5.0); ANION GAP 9 mmol/L (5-15); CALCIUM 8.7 mg/dL (8.5-10.1); CHLORIDE 106 mmol/L (98-107)
[2018-03-09 05:56] LABS: ALANINE AMINOTRANSFERASE 10 U/L (12-78); ALKALINE PHOSPHATASE 177 U/L (45-117); BILIRUBIN,TOTAL 1.8 mg/dL (0.2-1.0); CREATININE 0.67 mg/dL (0.55-1.02); TOTAL PROTEIN 7.3 g/dL (6.4-8.2); TRIGLYCERIDES 101 mg/dL (50-200)
[2018-03-09] MEDS: LINEZOLID PMX 600MG/300ML 300 ML IV SCH (06:04)
[2018-03-09] MEDS: LEVOTHYROXINE 100 MCG INJ IVPush SCH (10:31)
[2018-03-09] MEDS ORDERED: FUROSEMIDE 20 MG/2 ML IV SCH (11:00)
[2018-03-09] MEDS ORDERED: Zyvox IVPB (11:11)
[2018-03-09] MEDS ORDERED: FURO10VI37 IV (11:11)
[2018-03-09] MEDS ORDERED: Pharmacy May Adj For Renal Fx MC (11:11)
[2018-03-09] MEDS ORDERED: Flagyl IVPB (11:11)
[2018-03-09] MEDS ORDERED: INSU100I11 SQ-INSULIN (11:11)
[2018-03-09] MEDS ORDERED: Tpn Per Pharmacy MC (11:11)
[2018-03-09] MEDS ORDERED: LACT20SO13 NG (11:11)
[2018-03-09] MEDS ORDERED: PANT40VI IVPush (11:11)
[2018-03-09] MEDS ORDERED: Fluconazole IVPB (11:11)
[2018-03-09] MEDS ORDERED: TPN PER PHARMACY (11:11)
[2018-03-09] MEDS ORDERED: ALBUMIN (11:11)
[2018-03-09] MEDS ORDERED: LEVO100V IVPush (11:11)
[2018-03-09] MEDS: FLUCONAZOLE 200 MG/100 ML 100 ML IV SCH (12:25)
[2018-03-09] MEDS ORDERED: DEXTROSE 70% IV SCH ×2 (17:00)
[2018-03-09] MEDS ORDERED: [UNRECOGNIZED DRUG - OTHER] IV SCH (17:00)
[2018-03-09] MEDS ORDERED: [UNRECOGNIZED DRUG - OTHER] IV SCH (17:00)
[2018-03-09] MEDS ORDERED: FAT EMUL IV SCH ×2 (17:00)
[2018-03-09] MEDS ORDERED: SMOF TPN IV SCH ×2 (17:00)
[2018-03-09] MEDS ORDERED: AMINO ACID 10% IV SCH ×2 (17:00)
== END 2018-03-09 16:11 | DRG 739 ==
LOC: ORIP 05:45 → 4NOR 15:06 → CCU 02-15 12:31 → 4NOR 02-20 17:44 → CCU 03-01 14:11 → 4NOR 03-03 18:21 → CCU 03-04 08:31
PROVIDERS: ADMIT Specialist; ATTEND Specialist
PROC: 0UT70ZZ Resection of Bilateral Fallopian Tubes, Open Approach (ICD-10-PCS; 2018-02-09)
PROC: 0UT90ZZ Resection of Uterus, Open Approach (ICD-10-PCS; 2018-02-09)
PROC: 07BC0ZZ Excision of Pelvis Lymphatic, Open Approach (ICD-10-PCS; 2018-02-09)
PROC: 0DBB0ZZ Excision of Ileum, Open Approach (ICD-10-PCS; principal; 2018-02-09 07:30)
PROC: 0UT20ZZ Resection of Bilateral Ovaries, Open Approach (ICD-10-PCS; 2018-02-09 07:30)
PROC: 0W9G00Z Drainage of Peritoneal Cavity with Drainage Device, Open Approach (ICD-10-PCS; 2018-02-15)
PROC: 0T9B70Z Drainage of Bladder with Drainage Device, Via Natural or Artificial Opening (ICD-10-PCS; 2018-02-15)
PROC: 0DQB0ZZ Repair Ileum, Open Approach (ICD-10-PCS; 2018-02-15)
PROC: 5A1945Z Respiratory Ventilation, 24-96 Consecutive Hours (ICD-10-PCS; 2018-02-15)
PROC: 0BH17EZ Insertion of Endotracheal Airway into Trachea, Via Natural or Artificial Opening (ICD-10-PCS; 2018-02-15)
PROC: 30233N1 Transfusion of Nonautologous Red Blood Cells into Peripheral Vein, Percutaneous Approach (ICD-10-PCS; 2018-02-27)
PROC: 0DJ08ZZ Inspection of Upper Intestinal Tract, Via Natural or Artificial Opening Endoscopic (ICD-10-PCS; 2018-03-02)
PROC: 04L33DZ Occlusion of Hepatic Artery with Intraluminal Device, Percutaneous Approach (ICD-10-PCS; 2018-03-02)
PROC: 04LY3DZ Occlusion of Lower Artery with Intraluminal Device, Percutaneous Approach (ICD-10-PCS; 2018-03-02)
PROC: 5A1955Z Respiratory Ventilation, Greater than 96 Consecutive Hours (ICD-10-PCS; 2018-03-04)
PROC: 0BH17EZ Insertion of Endotracheal Airway into Trachea, Via Natural or Artificial Opening (ICD-10-PCS; 2018-03-04)
DX: C54.1 Malignant neoplasm of endometrium (principal); A41.9 Sepsis, unspecified organism; N17.0 Acute kidney failure with tubular necrosis; J96.00 Acute respiratory failure, unspecified whether with hypoxia or hypercapnia; G93.41 Metabolic encephalopathy; E43 Unspecified severe protein-calorie malnutrition; K26.4 Chronic or unspecified duodenal ulcer with hemorrhage; K65.1 Peritoneal abscess; R65.21 Severe sepsis with septic shock; D62 Acute posthemorrhagic anemia; E87.2 Acidosis; J81.1 Chronic pulmonary edema; J98.11 Atelectasis; Z99.11 Dependence on respirator [ventilator] status; E03.9 Hypothyroidism, unspecified; E11.22 Type 2 diabetes mellitus with diabetic chronic kidney disease; E11.65 Type 2 diabetes mellitus with hyperglycemia; E66.9 Obesity, unspecified; E78.5 Hyperlipidemia, unspecified; E86.0 Dehydration; E87.5 Hyperkalemia; F03.90 Unspecified dementia, unspecified severity, without behavioral disturbance, psychotic disturbance, mood disturbance, and anxiety; K44.9 Diaphragmatic hernia without obstruction or gangrene; K66.0 Peritoneal adhesions (postprocedural) (postinfection); K66.8 Other specified disorders of peritoneum; L40.9 Psoriasis, unspecified; N18.9 Chronic kidney disease, unspecified; Z51.5 Encounter for palliative care; Z78.0 Asymptomatic menopausal state; Z82.49 Family history of ischemic heart disease and other diseases of the circulatory system; Z93.3 Colostomy status; Z68.39 Body mass index [BMI] 39.0-39.9, adult
CPT/HCPCS: 36415; 36600; 37244; 71045; 74018; 74177; 75726; 80048; 80053; 81001; 82040; 82140; 82272; 82330; 82533; 82607; 82728; 82803; 82947; 82962; 83540; 83550; 83735; 84100; 84132; 84134; 84295; 84439; 84443; 84478; 84481; 85014; 85018; 85025; 86078; 86850; 86900; 86923; 87040; 87070; 87077; 87081; 87086; 87106; 87186; 87205; 87324; 87493; 88304; 88305; 88309; 88331; 94002; 94003; 94150; 94640; 99152; 99153; C1729; G0378; J0610; J0690; J1100; J1170; J1644; J1650; J1815; J2020; J2248; J2250; J2270; J2405; J2543; J2704; J2710; J3010; J3475; J3490; J7120; J7620; P9045; P9047; Q0162; Q9967; C1751; C1760; C1769; C1894; C9113; J0330; J0360; J1450; J1630; J1720; J1940; J2310; J2370; J2765; J3420; J7030; J7040; J7050; P9016; S0028; S0074